=== PATIENT | female | born 1935 | race Hispanic/Latino ===

== ENCOUNTER 2018-01-10 07:08 | Observation (INO) | payer MEDICARE, OTHER ==
--- NOTE | 2018-01-10 07:33 | ED PDOC ---
HPI: Altered Mental Status Time Seen by Provider: 01/10/18 07:15 Chief Complaint (Nursing): Altered Mental Status Chief Complaint (Provider): Altered Mental Status History Per: Patient, EMS History/Exam Limitations: None Additional Complaint(s): 82 years old female with history of multiple myeloma and anemia brought to the ED by EMS after a brief period of confusion looking for her son. Patient is now awake, alert and offers no complaints. PMD: non provided Past Medical History Reviewed: Historical Data, Nursing Documentation, Vital Signs Vital Signs: Last Vital Signs Temp 98.5 F 01/10/18 07:29 Pulse 66 01/10/18 07:29 Resp 17 01/10/18 07:29 BP 122/72 01/10/18 07:29 Pulse Ox 97 01/10/18 07:29 - Medical History PMH: Anemia, Depression, Diabetes (type II), Fractures, Gall Bladder Disease, HTN, Hypothyroidism, Malignancy (multiple myeloma (chemotherapy x5 years, last treatment 2014)), Pneumonia, Chronic Kidney Disease (w/renal failure) Denies: Arthritis, CHF, COPD, HIV, Hypercholesterolemia, Rheumatoid Arthritis - Surgical History Surgical History: Cholecystectomy (October 2012), Tonsillectomy - Family History Family History: States: Unknown Family Hx - Social History Current smoker - smoking cessation education provided: No Alcohol: None Drugs: Denies - Immunization History Hx Influenza Vaccination: No Hx Pneumococcal Vaccination: No - Home Medications Home Medications: Ambulatory Orders Medication Instructions Recorded Febuxostat [Uloric] 40 mg PO HS 01/03/16 Escitalopram [Lexapro] 10 mg PO HS 03/12/16 Levothyroxine [Synthroid] 50 mcg PO DAILY 03/12/16 Ondansetron [Zofran Tab] 4 mg PO Q6 PRN #0 tab 04/16/16 Sevelamer [Renagel] 800 mg PO TID #0 tab 04/16/16 Carvedilol [Coreg] 3.125 mg PO Q12 04/18/16 Dronabinol [Marinol] 5 mg PO DAILY 07/08/17 Ergocalciferol (Vitamin D2) 50,000 units PO QWK 07/08/17 [Vitamin D2] Ferric Citrate [Auryxia] 210 mg PO BID 07/08/17 Paricalcitol [Zemplar] 1 mcg PO QOTHERDAY 07/08/17 Sodium Bicarbonate Tab 650 mg PO BID 07/08/17 Solifenacin Succinate [Vesicare] 5 mg PO DAILY 07/08/17 Solifenacin Succinate [Vesicare] 5 mg PO DAILY 07/08/17 - Allergies Allergies/Adverse Reactions: Allergies Allergy/AdvReac Type Severity Reaction Status Date / Time No Known Allergies Allergy Verified 01/10/18 07:25 Review of Systems ROS Statement: Except As Marked, All Systems Reviewed And Found Negative Neurological: Positive for: Confusion Physical Exam - Reviewed Nursing Documentation Reviewed: Yes Vital Signs Reviewed: Yes - Physical Exam Appears: Positive for: Non-toxic, No Acute Distress Neck: Positive for: Normal Cardiovascular/Chest: Positive for: Regular Rate, Rhythm. Negative for: Murmur Respiratory: Positive for: Normal Breath Sounds. Negative for: Respiratory Distress Extremity: Positive for: Normal ROM. Negative for: Tenderness, Swelling Neurologic/Psych: Positive for: Alert, Oriented (x3). Negative for: Motor/ Sensory Deficits - Laboratory Results Result Diagrams: 01/10/18 07:45 01/10/18 07:45 - ECG O2 Sat by Pulse Oximetry: 97 (RA) Pulse Ox Interpretation: Normal Medical Decision Making Medical Decision Making: Time: 725 Initial Plan: --CMP --CBC --Urinalysis Scribe Attestation: Documented by Bernie Infante, acting as a scribe for Joel Rizvi MD. Provider Scribe Attestation: All medical record entries made by the Scribe were at my direction and personally dictated by me. I have reviewed the chart and agree that the record accurately reflects my personal performance of the history, physical exam, medical decision making, and the department course for this patient. I have also personally directed, reviewed, and agree with the discharge instructions and disposition. Disposition - Clinical Impression Clinical Impression: Acute renal failure superimposed on stage 4 chronic kidney disease, Anemia, Multiple myeloma - Patient ED Disposition Is Patient to be Admitted: Yes - Disposition Disposition Time: 09:23 Condition: FAIR Forms: Citilog (Sinhala) - Pt Status Changed To: Hospital Disposition Of: Observation - POA Present On Arrival: None
[2018-01-10 07:51] LABS: BASO # 0.1 K/uL (0.0-0.2); EOS % 1.2 % (0.0-4.0); LYMPH # 1.1 K/uL (1.0-4.3); LYMPH % 30.1 % (20.0-40.0); MEAN CELL VOLUME 85.1 fl (81.0-99.0); MEAN CORPUSCULAR HGB CONC 32.9 g/dL (33.0-37.0); MEAN PLATELET VOLUME 9.8 fl (7.2-11.7); MONO # 0.2 K/uL (0.0-0.8); MONO % 4.5 % (0.0-10.0); NEUT # 2.2 K/uL (1.8-7.0); NEUT % 62.2 % (50.0-75.0); NRBC % 0.3 % (0.0-0.0); RBC 2.5 Mil/uL (3.80-5.20); RED CELL DISTRIBUTION WIDTH 17.5 % (11.5-14.5); WHITE BLOOD COUNT 3.5 K/uL (4.8-10.8)
[2018-01-10 08:04] LABS: ALBUMIN 3.8 g/dL (3.5-5.0); CALCIUM 10.1 mg/dL (8.4-10.2)
[2018-01-10 09:25] LABS: SQUAMOUS EPITHIAL 4 /hpf (0-5); URINE BACTERIA MANY (<OCC); URINE BILIRUBIN NEGATIVE (NEGATIVE); URINE BLOOD SMALL (NEGATIVE); URINE CLARITY CLOUDY (Clear); URINE COLOR YELLOW (YELLOW); URINE GLUCOSE (UA) NEG (Normal); URINE LEUKOCYTE ESTERASE LARGE Leu/uL (Negative); URINE PROTEIN 30 mg/dL (NEGATIVE); URINE UROBILINOGEN 0.2-1.0 mg/dL (0.2-1.0)
--- NOTE | 2018-01-10 10:30 | CT ---
Date of service: 01/10/2018 PROCEDURE: CT HEAD WITHOUT CONTRAST. HISTORY: COMPARISON: NoneComparison made with CT scan brain dated 06/04/2013. . Available. TECHNIQUE: Axial computed tomography images were obtained through the head/brain without intravenous contrast. Radiation dose: Total exam DLP = 754.88 mGy-cm. This CT exam was performed using one or more of the following dose reduction techniques: Automated exposure control, adjustment of the mA and/or kV according to patient size, and/or use of iterative reconstruction technique. FINDINGS: HEMORRHAGE: No. Acute parenchymal, subarachnoid nor extra-axial hemorrhage. BRAIN: Mild chronic periventricular white matter ischemic changes seen extending peripherally into the deep white matter both cerebral hemispheres No obvious parenchymal nor extra-axial mass or collection seen on this noncontrast study Moderate generalized volume loss. Mild vascular calcifications both carotid siphons. VENTRICLES: No obstructive hydrocephalus. CALVARIUM: Calvarium intact PARANASAL SINUSES: Unremarkable as visualized. No significant inflammatory changes. MASTOID AIR CELLS: Unremarkable as visualized. No inflammatory changes. OTHER FINDINGS: Changes of bilateral cataract surgery again seen. IMPRESSION: Go to the begin No acute intracranial hemorrhage. Mild chronic white matter ischemic changes. Moderate generalized volume loss.
[2018-01-10] MEDS ORDERED: Sodium Chloride 0.9% 1,000 ML IV STA (11:31)
--- NOTE | 2018-01-10 11:36 | CP.PCM.HP ---
History of Present Illness - History of Present Illness History of Present Illness: CC: Altered mental status This is an 82 year old female with pmh of multiple myeloma with secondary anemia , also with Type 2 DM, history of essential hypertension, CKD stage IV not on dialysis, hypothyroidism, pneumonia, presenting to the ED today after a brief period of confusion at home. Early this morning she was at home looking for her son. In the ED, the patient was seen to be awake and alert and is oriented x 3. She has no current complaints at this time. CT head was negative for CVA, only showed mild chronic white matter ischemic changes. Labwork shows WBC of 3.5, Hg 7.0 (down from 7.8 previously), and platelet count of 78. BUN is 62 and Creatinine is 4.6, worse than her previous (in 06/05/16 had BUN of 31 and Cr of 2.7). The patient is being admitted overnight for PRBC transfusion and for further workup and management by nephrology. Patient denies chest pain, shortness of breath, fevers, chills, nausea, vomiting, diarrhea, headache. All of the patient's and family's questions were answered at the bedside. Present on Admission - Present on Admission Any Indicators Present on Admission: No Review of Systems - Review of Systems Review of Systems: A 12 point review of systems was conducted and found to be negative other than what was mentioned in the HPI. Past Patient History - Infectious Disease Hx of Infectious Diseases: None - Tetanus Immunizations Tetanus Immunization: Unknown - Past Medical History & Family History Past Medical History?: Yes - Past Social History Alcohol: None Drugs: Denies - CARDIAC Hx Congestive Heart Failure: No Hx Hypercholesterolemia: No Hx Hypertension: Yes - PULMONARY Hx Chronic Obstructive Pulmonary Disease (COPD): No Hx Pneumonia: Yes - NEUROLOGICAL Hx Neurological Disorder: No HX Cerebrovascular Accident: No Hx Vertigo: Yes - HEENT Hx HEENT Problems: Yes Hx Cataracts: Yes (both eyes) - RENAL Hx Chronic Kidney Disease: Yes (w/renal failure) - ENDOCRINE/METABOLIC Hx Hypothyroidism: Yes - HEMATOLOGICAL/ONCOLOGICAL Hx Anemia: Yes Hx Human Immunodeficiency Virus (HIV): No - INTEGUMENTARY Hx Dermatological Problems: No - MUSCULOSKELETAL/RHEUMATOLOGICAL Hx Arthritis: No Hx Fractures: Yes Hx Rheumatoid Arthritis: No - GASTROINTESTINAL Hx Gall Bladder Disease: Yes - GENITOURINARY/GYNECOLOGICAL Hx Genitourinary Disorders: Yes Hx Urinary Tract Infection: Yes Other/Comment: Hysterectomy 39 years ago - PSYCHIATRIC Hx Depression: Yes - SURGICAL HISTORY Hx Cholecystectomy: Yes (October 2012) Hx Tonsillectomy: Yes - ANESTHESIA Hx Anesthesia: Yes Hx Anesthesia Reactions: No Hx Malignant Hyperthermia: No Meds Allergies/Adverse Reactions: Allergies Allergy/AdvReac Type Severity Reaction Status Date / Time No Known Allergies Allergy Verified 01/10/18 07:25 Physical Exam - Additional Findings Additional findings: Physical exam: Constitutional- cooperative, awake, alert Head- NCAT, PERRL Eye- PERRL, EOMI ENT- normal exam, MMM. Neck- normal inspection, supple, no JVD Respiratory- CTAB, no wheezes rales rhonchi Cardiovascular- RRR, +S1, +S2 no MRG GI/Abdominal- normal bowel sounds, soft, no mass, no hsm Skin- warm, dry Extremities Exam- normal capillary refill, normal inspection Neurological Exam- alert, awake, oriented Psych- normal mood, normal affect Results - Vital Signs Recent Vital Signs: Last Vital Signs Temp 98.5 F 01/10/18 07:29 Pulse 66 01/10/18 07:29 Resp 17 01/10/18 07:29 BP 122/72 01/10/18 07:29 Pulse Ox 97 01/10/18 09:23 - Labs Result Diagrams: 01/10/18 07:45 01/10/18 07:45 Labs: Laboratory Results - last 24 hr 01/10/18 01/10/18 01/10/18 07:45 07:45 08:40 WBC 3.5 L RBC 2.50 L Hgb 7.0 L Hct 21.2 L MCV 85.1 D MCH 28.0 MCHC 32.9 L RDW 17.5 H Plt Count 78 L MPV 9.8 Neut % (Auto) 62.2 Lymph % (Auto) 30.1 [place] % (Auto) 4.5 Eos % (Auto) 1.2 Baso % (Auto) 2.0 Neut # (Auto) 2.2 Lymph # (Auto) 1.1 [place] # (Auto) 0.2 Eos # (Auto) 0.0 Baso # (Auto) 0.1 Sodium 136 Potassium 4.9 Chloride 107 Carbon Dioxide 21 L Anion Gap 13 BUN 62 H Creatinine 4.6 H Est GFR ( Amer) 11 Est GFR (Non-Af Amer) 9 Random Glucose 93 Calcium 10.1 Total Bilirubin 0.8 AST 17 ALT 10 Alkaline Phosphatase 47 Total Protein 7.5 Albumin 3.8 Globulin 3.7 Albumin/Globulin Ratio 1.0 Urine Color Urine Clarity Urine pH Ur Specific [place] Urine Protein Urine Glucose (UA) Urine Ketones Urine Blood Urine Nitrate Urine Bilirubin Urine Urobilinogen Ur Leukocyte Esterase Urine RBC (Auto) Urine Microscopic WBC Ur Squamous Epith Cells Urine Bacteria Blood Type AB POSITIVE Crossmatch See Detail BBK History Checked Patient has bt 01/10/18 09:05 WBC RBC Hgb Hct MCV MCH MCHC RDW Plt Count MPV Neut % (Auto) Lymph % (Auto) [place] % (Auto) Eos % (Auto) Baso % (Auto) Neut # (Auto) Lymph # (Auto) [place] # (Auto) Eos # (Auto) Baso # (Auto) Sodium Potassium Chloride Carbon Dioxide Anion Gap BUN Creatinine Est GFR ( Amer) Est GFR (Non-Af Amer) Random Glucose Calcium Total Bilirubin AST ALT Alkaline Phosphatase Total Protein Albumin Globulin Albumin/Globulin Ratio Urine Color Yellow Urine Clarity Cloudy Urine pH 7.0 Ur Specific [place] 1.009 Urine Protein 30 Urine Glucose (UA) Neg Urine Ketones Negative Urine Blood Small Urine Nitrate Negative Urine Bilirubin Negative Urine Urobilinogen 0.2-1.0 Ur Leukocyte Esterase Large Urine RBC (Auto) 8 H Urine Microscopic WBC 431 H Ur Squamous Epith Cells 4 Urine Bacteria Many H Blood Type Crossmatch BBK History Checked Assessment & Plan - Assessment and Plan (Free Text) Plan: This is an 82 year old female with pmh of multiple myeloma with secondary anemia , also with Type 2 DM, history of essential hypertension, CKD stage IV not on dialysis, hypothyroidism, pneumonia, presenting to the ED today after a brief period of confusion at home. Early this morning she was at home looking for her son. In the ED, the patient was seen to be awake and alert and is oriented x 3. She has no current complaints at this time. CT head was negative for CVA, only showed mild chronic white matter ischemic changes. Labwork shows WBC of 3.5, Hg 7.0 (down from 7.8 previously), and platelet count of 78. BUN is 62 and Creatinine is 4.6, worse than her previous (in 06/05/16 had BUN of 31 and Cr of 2.7). Patient also found to have UTI on urinalysis. The patient is being admitted overnight for PRBC transfusion and for further workup and management by nephrology. Patient denies chest pain, shortness of breath, fevers, chills, nausea, vomiting, diarrhea, headache. All of the patient's and family's questions were answered at the bedside. 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 Maty March on consultation 2) Acute on chronic kidney disease stage IV, with hematuria, secondary to multiple myeloma - Dr. Younger on consult covering for Dr. Garnett - Renal and Pelvic US ordered - Check protein electrophoresis, microalbumin - U/A positive for large blood and WBC - Bicarb as per nephrology - Continue Renagel 800 mg po tID 3) UTI, likely cause of altered mental status - Many bacteria, WBC, blood in urine - f/u Blood, urine cultures - No leukocytosis or fever presently 4) Essential hypertension - Continue Coreg 5) Hypothyroidism - Continue home synthroid 6) DVT prophylaxis - Heparin 5000 sq q 12 hours
[2018-01-10] MEDS ORDERED: cefTRIAXone (Rocephin) 1 gm Inj ONE (12:06)
[2018-01-10 12:28] LABS: IRON 52 ug/dL (37-170)
[2018-01-10 12:37] LABS: % IRON SATURATION 24 % (20-55); TOTAL IRON BINDING CAPACITY 221 ug/dL (250-450)
[2018-01-10] MEDS: Levothyroxine 50 MCG TAB PO SCH (12:51)
--- NOTE | 2018-01-10 14:21 | CP.PCM.CON ---
History of Present Illness - History of Present Illness History of Present Illness: Nephrology Consultation Note: Assessment: Stable AMS, UTI Acute Kidney Injury (N17.9) likely due to pre-renal state r/o obstructive uropathy Diabetic chronic Kidney Disease (E11.22) Hypertensive Chronic Kidney Disease (I12.9) Chronic Kidney Disease (N18.4) Stage 4 with ? mg proteinuria (R80.9) Anemia (D64.9), Hyperphosphatemia (E83.39), Secondary Hyperparathyroidism (E21.1 ), HTN (I12.9) hx of multiple myeloma, memory impairment, b/l hydroureteronephrosis, metabolic acidosis, bladder stimulator Plan No acute need for renal replacement therapy at this time. . Hypertension control with meds as ordered. Maintain hemodynamics stable. Avoid hypotension. No ACEI/ARB for now due to BRODY Monitor Input/Output, daily weights and renal function with basic metabolic panel heme following, pt planned for PRBC. will defer decision for ESAs to heme/onc antibiotics for UTI as ordered started IVF as NS @ 100 ml/hr supplement with PO bicarb. pt on phos binder as aurxia, uloric for hyperuricemia. consider urology eval if imaging shows hydronephrosis. Check urine analysis, spot protein/creatinine, albumin/creatinine ratio, urine cx/sens, renal and bladder sonogram Anemia work up with TSAT/Ferritin/Vitamin B12/folate, serum protein electrophoresis with immunofixation, serum free light chain assay ([place]/Lambda) Check for 25-OH vitamin D, iPTH, phosphorus level. Dose meds/antibiotics for reduced GFR. Avoid fleets enema/magnesium based laxatives. Avoid nephrotoxins/NSAIDs/ iodinated contrast (unless needed emergently) Glycemic control Further work up/management as per primary team Thanks for allowing me to participate in care of your patient. Will follow patient with you. Please call if any Qs. d/w family and ER Dr Yaakov Younger Office: [phone] Chief Complaint; confusion Reason for consult: Acute Kidney Injury HPI: Pt is a 82 F with hx of diabetes Mellitus ( years), hypertension (years) CKD 4 with cr 3 in october 2017 (f/up with Dr Garnett), recurrent UTIs and b/l hydroureteronephrosis, anemia, multiple myeloma s/p chemo 3 years ago, memory impairment, hx of bladder stimulator presented with complaints of confusion x 1 day. also with mild burning urination. pt with decreased appetite for years better with marinol but low intake for last few days. Denies OTC/herbal meds or NSAIDs No recent iodinated contrast exposure. No obvious episodes of low BP. pt had declined dialysis as per family. ROS: Cardiovascular: No chest pain. Pulmonary: No shortness of breath Gastrointestinal: denies abdominal pain No nausea. No vomiting. Genitourinary: No pain while urinating. Denies blood in urine. has burning urination All other negative except as mentioned in HPI. family also provided ROS Physical Examination: family bedside General Appearance: Comfortable, in no acute respiratory distress, co-operative . Vitals reviewed and noted as below Head; Atraumatic, normocephalic ENT: no ulcers no thrush. Tongue is midline. Oropharynx: no rash or ulcers. EYES: Pupils are equal, round and reactive to light accommodation. Eye muscles and extraocular movement intact. Sclera is anicteric. Neck; supple no lymphadenopathy, no thyromegaly or bruit Lungs: Normal respiratory rate/effort. Breath sounds bilateral equal and clear Heart: Normal rate. s1s2 normal. No rub or gallop. Extremities: no edema. No varicose veins Neurological: Patient is alert, awake and oriented to person, place and time. No focal deficit. Strength bilateral appropriate and equal. memory impaired, mild intermittent confusion Skin: Warm and dry. Normal turgor. No rash. Palpitation: Normal elasticity for age Abdomen: Abdomen is soft. Bowel sounds +. There is no abdominal tenderness, no guarding/rigidity no organomegaly Psych: limited insight and normal affect/mood MSK: no joint tenderness or swelling. Digits and nails normal, no deformity : kidney or bladder not palpable Labs/imaging reviewed. Past medical history, past surgical history, family history, social history, allergy reviewed and noted as below Family hx: no hx of CKD. Rest non-contributory Past Patient History - Infectious Disease Hx of Infectious Diseases: None - Tetanus Immunizations Tetanus Immunization: Unknown - Past Medical History & Family History Past Medical History?: Yes - Past Social History Alcohol: None Drugs: Denies - CARDIAC Hx Congestive Heart Failure: No Hx Hypercholesterolemia: No Hx Hypertension: Yes - PULMONARY Hx Chronic Obstructive Pulmonary Disease (COPD): No Hx Pneumonia: Yes - NEUROLOGICAL Hx Neurological Disorder: No - HEENT Hx HEENT Problems: Yes - RENAL Hx Chronic Kidney Disease: Yes (w/renal failure) - ENDOCRINE/METABOLIC Hx Hypothyroidism: Yes - HEMATOLOGICAL/ONCOLOGICAL Hx Anemia: Yes Hx Human Immunodeficiency Virus (HIV): No - INTEGUMENTARY Hx Dermatological Problems: No - MUSCULOSKELETAL/RHEUMATOLOGICAL Hx Arthritis: No Hx Fractures: Yes Hx Rheumatoid Arthritis: No - GASTROINTESTINAL Hx Gall Bladder Disease: Yes - GENITOURINARY/GYNECOLOGICAL Hx Genitourinary Disorders: Yes - PSYCHIATRIC Hx Depression: Yes - SURGICAL HISTORY Hx Cholecystectomy: Yes (October 2012) Hx Tonsillectomy: Yes - ANESTHESIA Hx Anesthesia: Yes Hx Anesthesia Reactions: No Hx Malignant Hyperthermia: No Meds Allergies/Adverse Reactions: Allergies Allergy/AdvReac Type Severity Reaction Status Date / Time No Known Allergies Allergy Verified 01/10/18 07:25 - Medications Medications: Current Medications Acetaminophen (Tylenol 325mg Tab) 650 mg PO Q6 PRN PRN Reason: Pain, Mild (1-3) Carvedilol (Coreg) 3.125 mg PO Q12 [facility] Last Admin: 01/10/18 12:50 Dose: 3.125 mg Escitalopram Oxalate (Lexapro) 10 mg PO HS JIGNA Heparin Sodium (Porcine) (Heparin) 5,000 units SC Q12 JIGNA PRN Reason: Protocol Last Admin: 01/10/18 11:18 Dose: 5,000 units Home Med (Febuxostat [Uloric]) 40 mg PO HS JIGNA Ceftriaxone Sodium 1 gm/ (Sodium Chloride) 100 mls @ 100 mls/hr IVPB DAILY JIGNA PRN Reason: Protocol Last Admin: 01/10/18 12:11 Dose: 100 mls/hr Sodium Chloride (Sodium Chloride 0.9%) 1,000 mls @ 100 mls/hr IV .Q10H STA Stop: 01/10/18 21:30 Last Admin: 01/10/18 12:11 Dose: 100 mls/hr Levothyroxine Sodium (Synthroid) 50 mcg PO DAILY [facility] Last Admin: 01/10/18 12:51 Dose: 50 mcg Ondansetron HCl (Zofran Inj) 4 mg IVP Q6 PRN PRN Reason: Nausea/Vomiting Sevelamer HCl (Renagel) 800 mg PO TID [facility] Last Admin: 01/10/18 13:20 Dose: 800 mg Sodium Bicarbonate (Sodium Bicarbonate Tab) 650 mg PO BID JIGNA Last Admin: 01/10/18 12:19 Dose: 650 mg Results - Vital Signs Recent Vital Signs: Last Vital Signs Temp 97.6 F 01/10/18 14:07 Pulse 60 01/10/18 14:07 Resp 17 01/10/18 14:07 BP 156/71 H 01/10/18 14:07 Pulse Ox 100 01/10/18 14:07 - Labs Result Diagrams: 01/10/18 07:45 01/10/18 07:45 Labs: Laboratory Results - last 24 hr 01/10/18 01/10/18 01/10/18 07:45 07:45 08:40 WBC 3.5 L RBC 2.50 L Hgb 7.0 L Hct 21.2 L MCV 85.1 D MCH 28.0 MCHC 32.9 L RDW 17.5 H Plt Count 78 L MPV 9.8 Neut % (Auto) 62.2 Lymph % (Auto) 30.1 [place] % (Auto) 4.5 Eos % (Auto) 1.2 Baso % (Auto) 2.0 Neut # (Auto) 2.2 Lymph # (Auto) 1.1 [place] # (Auto) 0.2 Eos # (Auto) 0.0 Baso # (Auto) 0.1 Sodium 136 Potassium 4.9 Chloride 107 Carbon Dioxide 21 L Anion Gap 13 BUN 62 H Creatinine 4.6 H Est GFR ( Amer) 11 Est GFR (Non-Af Amer) 9 Random Glucose 93 Calcium 10.1 Iron TIBC % Saturation Total Bilirubin 0.8 AST 17 ALT 10 Alkaline Phosphatase 47 Total Protein 7.5 Albumin 3.8 Globulin 3.7 Albumin/Globulin Ratio 1.0 Vitamin B12 Urine Color Urine Clarity Urine pH Ur Specific [place] Urine Protein Urine Glucose (UA) Urine Ketones Urine Blood Urine Nitrate Urine Bilirubin Urine Urobilinogen Ur Leukocyte Esterase Urine RBC (Auto) Urine Microscopic WBC Ur Squamous Epith Cells Urine Bacteria Blood Type AB POSITIVE Antibody Screen Negative Crossmatch See Detail BBK History Checked Patient has bt 01/10/18 01/10/18 01/10/18 09:05 12:15 12:15 WBC RBC Hgb Hct MCV MCH MCHC RDW Plt Count MPV Neut % (Auto) Lymph % (Auto) [place] % (Auto) Eos % (Auto) Baso % (Auto) Neut # (Auto) Lymph # (Auto) [place] # (Auto) Eos # (Auto) Baso # (Auto) Sodium Potassium Chloride Carbon Dioxide Anion Gap BUN Creatinine Est GFR ( Amer) Est GFR (Non-Af Amer) Random Glucose Calcium Iron 52 TIBC 221 L % Saturation 24 Total Bilirubin AST ALT Alkaline Phosphatase Total Protein Albumin Globulin Albumin/Globulin Ratio Vitamin B12 498 Urine Color Yellow Urine Clarity Cloudy Urine pH 7.0 Ur Specific [place] 1.009 Urine Protein 30 Urine Glucose (UA) Neg Urine Ketones Negative Urine Blood Small Urine Nitrate Negative Urine Bilirubin Negative Urine Urobilinogen 0.2-1.0 Ur Leukocyte Esterase Large Urine RBC (Auto) 8 H Urine Microscopic WBC 431 H Ur Squamous Epith Cells 4 Urine Bacteria Many H Blood Type Antibody Screen Crossmatch BBK History Checked
--- NOTE | 2018-01-10 15:05 | RAD ---
Date of service: 01/10/2018 HISTORY: Multiple myeloma COMPARISON: Comparison chest dated 04/12/2016 TECHNIQUE: Chest PA and lateral FINDINGS: LUNGS: There appears to be some mild bibasilar atelectasis and or scarring left greater than right. In addition, there are a cluster of small rounded/elliptical shaped densities in the right mid and lower lung zone which could represent small granulomata. Followup nonemergent CT scan of the chest could be performed further evaluation. PLEURA: No significant pleural effusion identified. No pneumothorax apparent. CARDIOVASCULAR: Normal. OSSEOUS STRUCTURES: No significant abnormalities. VISUALIZED UPPER ABDOMEN: Normal. OTHER FINDINGS: None. IMPRESSION: There appears to be some mild bibasilar atelectasis and or scarring left greater than right. In addition, there are a cluster of small rounded/elliptical shaped densities in the right mid and lower lung zone which could represent small granulomata. Followup nonemergent CT scan of the chest could be performed further evaluation.
--- NOTE | 2018-01-10 15:19 | US ---
Date of service: 01/10/2018 PROCEDURE: Ultrasound of the Kidneys HISTORY: BRODY COMPARISON: None available. TECHNIQUE: Sonogram of the kidneys. FINDINGS: RIGHT KIDNEY: Measures: 10.0 times 6.9 x 4.5 cm. Normal in size, contour and echogenicity. No stone, solid mass identified. Small cyst there appear to be at least 2 small cysts upper pole left kidney 1st measuring approximately 6.8 mm and the 2nd measuring approximately 11 mm in greatest dimension. Small cyst lower pole measuring approximately 1.5 cm in greatest dimension. Mild dilatation right renal pelvis LEFT KIDNEY: Measures: 9.3 x 4.9 x 3.9 cm. Normal in size, contour and echogenicity. No stone, solid mass lesion. Mild dilatation of the renal pelvis OTHER FINDINGS: None. IMPRESSION: Mild dilatation both renal pelves. . Several small cysts right kidney
--- NOTE | 2018-01-10 16:57 | US ---
Date of service: 01/10/2018 PROCEDURE: Ultrasound of the Bladder HISTORY: BRODY. please assess for PVR as well COMPARISON: Comparison made with prior pelvic ultrasound 04/16/2016. TECHNIQUE: Sonographic evaluation of the bladder was performed. FINDINGS: Unremarkable without wall thickening or intraluminal debris. No calculus or gross mass lesion. No free fluid in pelvis. Note that patient was unable to hold urine or fill urinary bladder enough for reliable measurements. Prevoid Volume: Approximately 50 cc. Post void residual: Approximately 38 cc. Hysterectomy. IMPRESSION: Prevoid bladder volume calculated at 50 cc and postvoid at 38 cc. Note that patient was unable to hold urine or fill urinary bladder enough for reliable measurements.
--- NOTE | 2018-01-10 22:58 | CARD ---
APPROVED REPORT Date of service: 01/10/2018 EKG Measurement Heart [id number] <Conclusion> Sinus rhythm with short VA Nonspecific T wave abnormality Abnormal ECG
[2018-01-11 06:21] LABS: HEMOGLOBIN 8.6 g/dL (12.0-16.0); MEAN CELL VOLUME 84.8 fl (81.0-99.0); MEAN CORPUSCULAR HEMOGLOBIN 28.5 pg (27.0-31.0); MEAN CORPUSCULAR HGB CONC 33.6 g/dL (33.0-37.0); RBC 3.02 Mil/uL (3.80-5.20); RED CELL DISTRIBUTION WIDTH 16.7 % (11.5-14.5); WHITE BLOOD COUNT 3.8 K/uL (4.8-10.8)
[2018-01-11 06:25] LABS: CALCIUM 9.7 mg/dL (8.4-10.2)
[2018-01-11] MEDS: Levothyroxine 50 MCG TAB PO SCH (08:17)
[2018-01-11] MEDS ORDERED: DRONABINOL 5 MG PO SCH (09:00)
[2018-01-11] MEDS ORDERED: Patient's Own Med (Solifenacin Succinate [Vesicare] 5 MG) PO SCH (09:00)
--- NOTE | 2018-01-11 09:07 | CP.PCM.PN ---
Subjective - Date & Time of Evaluation Date of Evaluation: 01/11/18 Time of Evaluation: 09:06 - Subjective Subjective: patient is 82 years of phase sitting up in bed very pleasant lady not in acute distress No nausea no vomiting Objective - Vital Signs/Intake and Output Vital Signs (last 24 hours): Temp Pulse Resp BP Pulse Ox 97.9 F 58 L 16 125/72 99 01/11/18 07:34 01/11/18 07:37 01/11/18 07:34 01/11/18 05:31 01/11/18 07:34 Intake and Output: 01/11/18 01/11/18 06:59 18:59 Intake Total 1200 Output Total 300 Balance 900 - Medications Medications: Current Medications Acetaminophen (Tylenol 325mg Tab) 650 mg PO Q6 PRN PRN Reason: Pain, Mild (1-3) Escitalopram Oxalate (Lexapro) 10 mg PO [facility] Last Admin: 01/10/18 21:11 Dose: 10 mg Famotidine (Pepcid) 40 mg PO [facility] Last Admin: 01/10/18 21:14 Dose: 40 mg Ferrous Sulfate (Feosol) 325 mg PO BID [facility] Last Admin: 01/11/18 08:17 Dose: 325 mg Heparin Sodium (Porcine) (Heparin) 5,000 units SC Q12 [facility] PRN Reason: Protocol Last Admin: 01/10/18 22:07 Dose: Not Given Home Med (Dronabinol [Marinol]) 5 mg PO DAILY [facility] Home Med (Solifenacin Succinate [Vesicare]) 5 mg PO DAILY [facility] Home Med (Febuxostat [Uloric]) 80 mg PO [facility] Last Admin: 01/10/18 21:11 Dose: 80 mg Ceftriaxone Sodium 1 gm/ (Sodium Chloride) 100 mls @ 100 mls/hr IVPB DAILY [facility] PRN Reason: Protocol Last Admin: 01/11/18 08:18 Dose: 100 mls/hr Levothyroxine Sodium (Synthroid) 50 mcg PO DAILY [facility] Last Admin: 01/11/18 08:17 Dose: 50 mcg Ondansetron HCl (Zofran Inj) 4 mg IVP Q6 PRN PRN Reason: Nausea/Vomiting Sevelamer HCl (Renagel) 800 mg PO TID [facility] Last Admin: 01/11/18 08:17 Dose: 800 mg Sodium Bicarbonate (Sodium Bicarbonate Tab) 650 mg PO BID [facility] Last Admin: 01/11/18 08:17 Dose: 650 mg - Labs Labs: 01/11/18 04:20 01/11/18 04:20 - Constitutional Appears: No Acute Distress - ENT Exam ENT Exam: Mucous Membranes Moist - Respiratory Exam Respiratory Exam: absent: Chest Wall Tenderness - Cardiovascular Exam Cardiovascular Exam: absent: Gallop, JVD, Rubs - GI/Abdominal Exam GI & Abdominal Exam: Soft, Normal Bowel Sounds - Extremities Exam Extremities Exam: absent: Calf Tenderness - Back Exam Back Exam: absent: CVA tenderness (L), CVA tenderness (R) - Neurological Exam Neurological Exam: Alert - Psychiatric Exam Psychiatric exam: Normal Affect - Skin Skin Exam: absent: Cyanosis Assessment and Plan (1) Acute renal failure superimposed on stage 4 chronic kidney disease Assessment & Plan: AMS, UTI Acute Kidney Injury (N17.9) likely due to pre-renal state r/o obstructive uropathy Diabetic chronic Kidney Disease (E11.22) Hypertensive Chronic Kidney Disease (I12.9) Chronic Kidney Disease (N18.4) Stage 4 with ? mg proteinuria (R80.9) Anemia (D64.9), Hyperphosphatemia (E83.39), Secondary Hyperparathyroidism (E21.1 ), HTN (I12.9) hx of multiple myeloma, memory impairment, b/l hydroureteronephrosis, metabolic acidosis, bladder stimulator Plan No acute need for renal replacement therapy at this time. . Hypertension control with meds as ordered. Maintain hemodynamics stable. Avoid hypotension. No ACEI/ARB for now due to BRODY Monitor Input/Output, daily weights and renal function with basic metabolic panel heme following, pt planned for PRBC. will defer decision for ESAs to heme/onc antibiotics for UTI as ordered started IVF as NS @ 100 ml/hr supplement with PO bicarb. pt on phos binder as aurxia, uloric for hyperuricemia. consider urology eval if imaging shows hydronephrosis. Check urine analysis, spot protein/creatinine, albumin/creatinine ratio, urine cx/sens, renal and bladder sonogram Anemia work up with TSAT/Ferritin/Vitamin B12/folate, serum protein electrophoresis with immunofixation, serum free light chain assay ([place]/Lambda) Check for 25-OH vitamin D, iPTH, phosphorus level. Dose meds/antibiotics for reduced GFR. Avoid fleets enema/magnesium based laxatives. Avoid nephrotoxins/NSAIDs/ iodinated contrast (unless needed emergently) Glycemic control Further work up/management as per primary team follow-up BMP and CBC Status: Acute (2) Anemia Status: Acute (3) Multiple myeloma Status: Chronic
--- NOTE | 2018-01-11 09:14 | CP.PCM.PN ---
Subjective - Date & Time of Evaluation Date of Evaluation: 01/11/18 Time of Evaluation: 09:08 - Subjective Subjective: This is a 82 yrs ld female wh was diagnosed to have a multiple myeloma about 7 yrs ago. She was treated with chemotherapy until she went into remission. She was on revlimid for a while but had some side effects ,so the medicine was discontinued and pt has been stable . Over the last 1.5 yrs her BUN and creatinine started going up and was being followed up with Dr Bustillos. The blood work was monitored but no dialysis was needed. Now she came in with a momentary chamge of mental status when she was looking for a baby. She was brought to the ER where her hgb was 7.0gms, and was trens fused 1 unit of blood.She had completely recovered from the mental problems since she came to the hospial. Objective - Vital Signs/Intake and Output Vital Signs (last 24 hours): Temp Pulse Resp BP Pulse Ox 97.9 F 58 L 16 125/72 99 01/11/18 07:34 01/11/18 07:37 01/11/18 07:34 01/11/18 05:31 01/11/18 07:34 Intake and Output: 01/11/18 01/11/18 06:59 18:59 Intake Total 1200 Output Total 300 Balance 900 - Medications Medications: Current Medications Acetaminophen (Tylenol 325mg Tab) 650 mg PO Q6 PRN PRN Reason: Pain, Mild (1-3) Escitalopram Oxalate (Lexapro) 10 mg PO [facility] Last Admin: 01/10/18 21:11 Dose: 10 mg Famotidine (Pepcid) 40 mg PO [facility] Last Admin: 01/10/18 21:14 Dose: 40 mg Ferrous Sulfate (Feosol) 325 mg PO BID [facility] Last Admin: 01/11/18 08:17 Dose: 325 mg Heparin Sodium (Porcine) (Heparin) 5,000 units SC Q12 [facility] PRN Reason: Protocol Last Admin: 01/10/18 22:07 Dose: Not Given Home Med (Dronabinol [Marinol]) 5 mg PO DAILY [facility] Home Med (Solifenacin Succinate [Vesicare]) 5 mg PO DAILY [facility] Home Med (Febuxostat [Uloric]) 80 mg PO [facility] Last Admin: 01/10/18 21:11 Dose: 80 mg Ceftriaxone Sodium 1 gm/ (Sodium Chloride) 100 mls @ 100 mls/hr IVPB DAILY [facility] PRN Reason: Protocol Last Admin: 01/11/18 08:18 Dose: 100 mls/hr Levothyroxine Sodium (Synthroid) 50 mcg PO DAILY [facility] Last Admin: 01/11/18 08:17 Dose: 50 mcg Ondansetron HCl (Zofran Inj) 4 mg IVP Q6 PRN PRN Reason: Nausea/Vomiting Sevelamer HCl (Renagel) 800 mg PO TID [facility] Last Admin: 01/11/18 08:17 Dose: 800 mg Sodium Bicarbonate (Sodium Bicarbonate Tab) 650 mg PO BID [facility] Last Admin: 01/11/18 08:17 Dose: 650 mg - Labs Labs: 01/11/18 04:20 01/11/18 04:20 - Additional Findings Additional findings: Physical exam; Alert,well oriented in no acute distress, very well oriented and embarassed about her mental lapse. neck; supple, no adenopathy Chest; Clear,no rales or rhonchi heart; RSR, no murmur Abd; Soft, no mass, no h/s megal Assessment and Plan - Assessment and Plan (Free Text) Assessment: Impression :Astablr disease. nemia ,chronic renal failure h/o multiple myeloma stable disease.. Plan: Plan; Pt was transfused 1 unit of blood, yesterday , hgb is 8.5 gms today. She may go home pending dance coach orders, she will see me in 1 month I did order tests to r/o recurrence of myeloma, which was sent from the ER.
--- NOTE | 2018-01-11 09:15 | CP.PCM.DIS ---
Provider - Provider Date of Admission: 01/10/18 08:57 Attending physician: Aldo Etienne DO Primary care physician: Chidi March MD Consults: Dr. Aren March Time Spent in preparation of Discharge (in minutes): 15 Hospital Course - Lab Results Lab Results: Micro Results 01/10/18 09:11 Blood Blood Culture - Preliminary NO GROWTH AFTER 24 HOURS Most Recent Lab Values WBC 3.8 K/uL (4.8-10.8) L 01/11/18 04:20 RBC 3.02 Mil/uL (3.80-5.20) L 01/11/18 04:20 Hgb 8.6 g/dL (12.0-16.0) L 01/11/18 04:20 Hct 25.6 % (34.0-47.0) L 01/11/18 04:20 MCV 84.8 fl (81.0-99.0) 01/11/18 04:20 MCH 28.5 pg (27.0-31.0) 01/11/18 04:20 MCHC 33.6 g/dL (33.0-37.0) 01/11/18 04:20 RDW 16.7 % (11.5-14.5) H 01/11/18 04:20 Plt Count 55 K/uL (130-400) L D 01/11/18 04:20 MPV 9.8 fl (7.2-11.7) 01/10/18 07:45 Neut % (Auto) 62.2 % (50.0-75.0) 01/10/18 07:45 Lymph % (Auto) 30.1 % (20.0-40.0) 01/10/18 07:45 [place] % (Auto) 4.5 % (0.0-10.0) 01/10/18 07:45 Eos % (Auto) 1.2 % (0.0-4.0) 01/10/18 07:45 Baso % (Auto) 2.0 % (0.0-2.0) 01/10/18 07:45 Neut # (Auto) 2.2 K/uL (1.8-7.0) 01/10/18 07:45 Lymph # (Auto) 1.1 K/uL (1.0-4.3) 01/10/18 07:45 [place] # (Auto) 0.2 K/uL (0.0-0.8) 01/10/18 07:45 Eos # (Auto) 0.0 K/uL (0.0-0.7) 01/10/18 07:45 Baso # (Auto) 0.1 K/uL (0.0-0.2) 01/10/18 07:45 Sodium 139 mmol/l (132-148) 01/11/18 04:20 Potassium 4.6 MMOL/L (3.6-5.0) 01/11/18 04:20 Chloride 109 mmol/L (98-107) H 01/11/18 04:20 Carbon Dioxide 25 mmol/L (22-30) 01/11/18 04:20 Anion Gap 10 (10-20) 01/11/18 04:20 BUN 53 mg/dl (7-17) H 01/11/18 04:20 Creatinine 4.1 mg/dl (0.7-1.2) H 01/11/18 04:20 Est GFR ( Amer) 13 01/11/18 04:20 Est GFR (Non-Af Amer) 10 01/11/18 04:20 POC Glucose (mg/dL) 84 mg/dL (65-110) 01/11/18 05:36 Random Glucose 92 mg/dL (65-105) 01/11/18 04:20 Calcium 9.7 mg/dL (8.4-10.2) 01/11/18 04:20 Phosphorus 3.4 mg/dl (2.5-4.5) 01/11/18 04:20 Magnesium 1.9 MG/DL (1.6-2.3) 01/11/18 04:20 Iron 52 ug/dL (37-170) 01/10/18 12:15 TIBC 221 ug/dL (250-450) L 01/10/18 12:15 % Saturation 24 % (20-55) 01/10/18 12:15 Ferritin 1410.0 ng/Ml (11.1-264.0) H 01/10/18 12:15 Total Bilirubin 0.8 mg/dl (0.2-1.3) 01/10/18 07:45 AST 17 U/L (14-36) 01/10/18 07:45 ALT 10 U/L (9-52) 01/10/18 07:45 Alkaline Phosphatase 47 U/L (38-126) 01/10/18 07:45 Total Protein 7.5 G/DL (6.3-8.2) 01/10/18 07:45 Albumin 3.8 g/dL (3.5-5.0) 01/10/18 07:45 Globulin 3.7 gm/dL (2.2-3.9) 01/10/18 07:45 Albumin/Globulin Ratio 1.0 (1.0-2.1) 01/10/18 07:45 Vitamin B12 498 pg/mL (239-931) 01/10/18 12:15 Urine Color Yellow (YELLOW) 01/10/18 09:05 Urine Clarity Cloudy (Clear) 01/10/18 09:05 Urine pH 7.0 (5.0-8.0) 01/10/18 09:05 Ur Specific [place] 1.009 (1.003-1.030) 01/10/18 09:05 Urine Protein 30 mg/dL (NEGATIVE) 01/10/18 09:05 Urine Glucose (UA) Neg mg/dL (Normal) 01/10/18 09:05 Urine Ketones Negative mg/dL (NEGATIVE) 01/10/18 09:05 Urine Blood Small (NEGATIVE) 01/10/18 09:05 Urine Nitrate Negative (NEGATIVE) 01/10/18 09:05 Urine Bilirubin Negative (NEGATIVE) 01/10/18 09:05 Urine Urobilinogen 0.2-1.0 mg/dL (0.2-1.0) 01/10/18 09:05 Ur Leukocyte Esterase Large [place]/uL (Negative) 01/10/18 09:05 Urine RBC (Auto) 8 /hpf (0-3) H 01/10/18 09:05 Urine Microscopic WBC 431 /hpf (0-5) H 01/10/18 09:05 Ur Squamous Epith Cells 4 /hpf (0-5) 01/10/18 09:05 Urine Bacteria Many (<OCC) H 01/10/18 09:05 Blood Type AB POSITIVE 01/10/18 08:40 Antibody Screen Negative 01/10/18 08:40 Crossmatch See Detail 01/10/18 08:40 BBK History Checked Patient has bt 01/10/18 08:40 - Hospital Course Hospital Course: Pt is an 82 yo female with a PMH of multiple myeloma with secondary anemia, HTN , CKD stage IV, hypothyroidism, came to the ED on 01/10 due to a period of confusion at home she states she was looking for her son and called the police to report him missing. In the ED patient was alert awake and oriented x3 , CT of head showed was negative for acute intracranial bleeding. UTI was positive for bacteria, WBC and blood in urine. Patients hg was 7.0 and platelet count was 78 she was transfused 1 unit of PRBC and nephrology Dr. Younger and Dr. Maty March were consulted. Today patient is doing well she is awake, alert and oriented x3. States she has mild dysuria, denies any chest pain, SOB, fevers, chills, nausea, vomiting, diarrhea, and constipation. Patient is hemodynamically stable, has elevated BP and sinus bradycardia Dr. Sabina March was consulted discontinued Coreg, started Norvasc. PT eval for discharge today on PO Cipro antibiotics. 1) Pancytopenia secondary to multiple myeloma - 1 unit of PRBCs transfused - pt hemodynamically stable - Patient can follow up with Dr. Maty March as outpt 2) Acute on chronic kidney disease stage IV, with hematuria, secondary to multiple myeloma - Renal U/S mild dilatation of both renal pelves, several small cysts on R kidney - U/A positive for large blood and WBC- Continue Cipro for 7 days as out pt - Renal replacement therapy was started, Bicarb as per nephrology - Continue Renagel 800 mg po TID 3) Transient confusion AMS Secondary to UTI - Many bacteria, WBC, blood in urine - Continue Cipro abx for 7 days as outpt - No leukocytosis or fever 4) Essential hypertension - Started Norvasc 5) Hypothyroidism - Continue Synthroid Discharge Exam - Head Exam Head Exam: ATRAUMATIC, NORMAL INSPECTION, NORMOCEPHALIC - Eye Exam Eye Exam: EOMI, Normal appearance, PERRL - ENT Exam ENT Exam: Mucous Membranes Moist - Respiratory Exam Respiratory Exam: Clear to PA & Lateral, NORMAL BREATHING PATTERN - Cardiovascular Exam Cardiovascular Exam: RRR, +S1, +S2 - GI/Abdominal Exam GI & Abdominal Exam: Normal Bowel Sounds - Extremities Exam Extremities exam: normal inspection - Neurological Exam Neurological exam: Alert, Oriented x3 - Psychiatric Exam Psychiatric exam: Normal Mood - Skin Skin Exam: Normal Color Discharge Plan - Discharge Medications Prescriptions: amLODIPine [Norvasc] 5 mg PO DAILY #30 tab Ciprofloxacin HCl [Cipro] 500 mg PO BID #14 tablet - Follow Up Plan Condition: STABLE Disposition: HOME/ ROUTINE Patient education suggested?: Yes Instructions: Anemia of Chronic Disease (DC), Urinary Tract Infection in Women (DC) Additional Instructions: follow up with in 1 week Referrals: Chidi March MD [Primary Care Provider] - Debbie March MD [Staff Provider] -
--- NOTE | 2018-01-11 09:22 | CP.PCM.CON ---
History of Present Illness - History of Present Illness History of Present Illness: This 82-year-old female is well-known to me. 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 She is a long-standing hypertensive was on beta-blockade. There is no history of smoking or diabetes and that has never been a myocardial infarction or congestive cardiac failure. The patient used to have frequent urinary tract infections and repeated hospitalizations approximately 2 years back which has resolved following a urological procedure which has relieved her of urinary stagnation. The patient also has hypothyroidism for which she takes thyroid replacement. The patient was brought to the emergency room when she woke up quite confused and this confusion lasted briefly. The patient was quite lucid by the time she was brought to the emergency room. She clearly remembers her ambulance ride to the emergency room. There was no lateralizing motor deficit or speech or visual disturbance. There were no chills or fever. Physical examination shows an elderly thin built female who is quite alert awake and coherent. She has sinus rhythm at 58 bpm regular and a blood pressure of 134/70 mmHg. Her jugular venous pressure was not elevated and there was no edema over lower extremities. The pedal pulses were well felt. There were no carotid bruits. The apex was in the face pain is the first and second heart sounds were normal. There was no murmur or gallop. There were no rales. Her abdomen was soft and liver and spleen are not palpable. Her electrocardiogram showed sinus rhythm but otherwise a normal pattern. Her lab data shows a normocytic normochromic anemia with mild degree of thrombocytopenia. She is significantly azotemic with a GFR in the range of 9-10 mL per minute. Her liver profile was normal. Impression: Transient confusion with no overt neurological deficit. Chronic renal failure secondary to multiple myeloma history of hypertension. I have discussed her case with the hospitalist and she may be allowed to return home to be worked up as an outpatient. Past Patient History - Infectious Disease Hx of Infectious Diseases: None - Tetanus Immunizations Tetanus Immunization: Unknown - Past Medical History & Family History Past Medical History?: Yes - Past Social History Smoking Status: Never Smoked - CARDIAC Hx Angina: No Hx Atrial Fibrillation: No Hx Cardia Arrhythmia: No Hx Circulatory Problems: No Hx Congestive Heart Failure: No Hx Heart Attack: No Hx Heart Murmur: No Hx Heart Transplant: No Hx Hypercholesterolemia: No Hx Hypertension: Yes Hx Hypotension: No Hx Internal Defibrillator: No Hx Mitral Valve Prolapse: No Hx Pacemaker: No Hx Peripheral Edema: No Hx Peripheral Vascular Disease: No - PULMONARY Hx Asthma: No Hx Bronchitis: No Hx Chronic Obstructive Pulmonary Disease (COPD): No Hx Emphysema: No Hx Lung Cancer: No Hx Pneumonia: Yes Hx Pulmonary Edema: No Hx Pulmonary Embolism: No Hx Respiratory Aspiration: No Hx Respiratory Tract Infection: No Hx Sleep Apnea: No Hx Tuberculosis: No - NEUROLOGICAL Hx Neurological Disorder: No Hx Alzheimer's Disease: No HX Cerebrovascular Accident: No Hx Dementia: No Hx Dizziness: Yes (on and off) Hx Meningitis: No Hx Migraine: No Hx Multiple Sclerosis: No Hx Paralysis: No Hx Parkinson's Disease: No Hx Seizures: No Hx Syncope: No Hx Transient Ischemic Attacks (TIA): No Hx Vertigo: Yes - HEENT Hx HEENT Problems: Yes Hx Blind: No Hx Cataracts: Yes (b/l cataract surgery 2009?) Hx Deafness: No Hx Difficulty Chewing: No Hx Epistaxis: No Hx Glaucoma: No Hx Macular Degeneration: No Hx Sinusitis: No - RENAL Hx Chronic Kidney Disease: Yes (w/renal failure) Hx Dialysis: No Hx Kidney Stones: Yes Hx Neurogenic Bladder: No Hx Pyelonephritis: No Hx Renal (Kidney) Cancer: No Hx Renal Failure: Yes - ENDOCRINE/METABOLIC Hx Adrenal Cancer: No Hx Diabetes Insipidus: No Hx Diabetes Mellitus Type 1: No Hx Diabetes Mellitus Type 2: Yes (had past history of DM) Hx Hyperthyroidism: No Hx Hypothyroidism: Yes Hx Systemic Lupus Erythematosus: No - HEMATOLOGICAL/ONCOLOGICAL Hx AIDS: No Hx Anemia: Yes Hx Blood Transfusions: Yes Hx Blood Transfusion Reaction: No Hx Bruising: Yes Hx Cancer: Yes (multiple myeloma 2009) Hx Chemotherapy: Yes Hx Cirrhosis: No Hx Gum Bleeding: No Hx Hemophilia: No Hx Hepatitis A: No Hx Hepatitis B: No Hx Hepatitis C: No Hx Human Immunodeficiency Virus (HIV): No Hx Leukemia: No Hx Metastesis: No Hx Shingles: Yes Hx Sickle Cell Disease: No Hx Unexplained Bleeding: No Hx von Willebrand's Disease: No - INTEGUMENTARY Hx Dermatological Problems: No Hx Basil Cell: No Hx Apodaca: No Hx Cellulitis: No Hx Eczema: No Hx Melanoma: No Hx Psoriasis: No Hx Squamous Cell: No - MUSCULOSKELETAL/RHEUMATOLOGICAL Hx Arthritis: Yes Hx Back Pain: Yes Hx Degenerative Joint Disease: Yes Hx Falls: Yes Hx Fractures: Yes Hx Gout: No Hx Herniated Disk: Yes Hx Myasthenia Gravis: No Hx Osteoarthritis: Yes Hx Osteomyelitis: No Hx Osteoporosis: Yes Hx Rhabdomyolysis: No Hx Rheumatoid Arthritis: No Hx Spinal Stenosis: Yes Hx Unsteady Gait: No (uses walker) - GASTROINTESTINAL Hx Bowel Surgery: No Hx Clostridium Difficile: No Hx Colitis: No Hx Colostomy: No Hx Constipation: Yes (occassional) Hx Crohn's Disease: No Hx Diarrhea: Yes (occassional) Hx Diverticulitis: No Hx Esophageal Varices: No Hx Fatty Liver Disease: No Hx Gall Bladder Disease: Yes (gallbladder removed) Hx Gastritis: No Hx Gastroesophageal Reflux: No Hx Hemorrhoids: Yes Hx Ileostomy: No Hx Irritable Bowel: No Hx Liver Failure: No Hx Nausea: No Hx Pancreatitis: No HX Swallowing Problems: No Hx Ulcer: No - GENITOURINARY/GYNECOLOGICAL Hx Genitourinary Disorders: Yes Hx Bladder Cancer: No Hx Bladder Stone: No Hx Cervical Cancer: No Hx Hematuria: No Hx Incontinence: Yes Hx Ovarian Cancer: No Hx Postmenopausal Bleeding: No Hx Reproductive Disorders: No Hx Sexually Transmitted Disorders: No Hx Uterine Cancer: No Hx Urinary Tract Infection: Yes - PSYCHIATRIC Hx Anxiety: No Hx Bipolar Disorder: No Hx Depression: Yes Hx Emotional Abuse: No Hx Hallucinations: No Hx Panic Symptoms: No Hx Paranoia: No Hx Post Traumatic Stress Disorder: No Hx Psychosis: No Hx Physical Abuse: No Hx Schizophrenia: No Hx Sexual Abuse: No Hx Substance Use: No - SURGICAL HISTORY Hx Abdominal Aortic Aneurysm Repair: No Hx Amputation: No Hx Angiogram: No Hx Angioplasty: No Hx Appendectomy: No Hx Arteriovenous Shunt: No Hx Arthroscopy: No Hx Bile Duct Stent: No Hx Breast Biopsy: No Hx Cataract Extraction: No Hx Cardiac Catheterization: No Hx Carotid Endarterectomy: No Hx Section: No Hx Cholecystectomy: Yes (October 2012) Hx Coronary Artery Bypass Graft: No Hx Coronary Stent: No Hx Dilation and Curettage: No Hx Eye Surgery: No Hx Femoral-Popliteal Bypass Graft: No Hx Gastric Bypass Surgery: No Hx Herniorrhaphy: No Hx Hysterectomy: Yes Hx Joint Replacement: No Hx Kidney Transplant: No Hx Liver Transplant: No Hx Mastectomy: No Hx Musculoskeletal Surgery: No Hx Open Heart Surgery: No Hx Open Reduction Internal Fixation: Yes (right hip 2009) Hx Orthopedic Surgery: Yes Hx Parathyroidectomy: No Hx Penile Implant: No Hx Pulmonary Surgery: No Hx Splenectomy: No Hx Thyroidectomy: No Hx Tonsillectomy: Yes Hx Tubal Ligation: No Hx Valve Replacement: No Hx Vascular Surgery: No Hx Vascular Access Device: No Other/Comment: IM roding right femur 2014. bladder stimulator - ANESTHESIA Hx Anesthesia: Yes Hx Anesthesia Reactions: Yes (nausea) Hx Malignant Hyperthermia: No Has any member of the family had a problem w/ anesthesia?: Yes (daughter/ nuasea episodes) Meds Allergies/Adverse Reactions: Allergies Allergy/AdvReac Type Severity Reaction Status Date / Time No Known Allergies Allergy Verified 01/10/18 07:25 - Medications Medications: Current Medications Acetaminophen (Tylenol 325mg Tab) 650 mg PO Q6 PRN PRN Reason: Pain, Mild (1-3) Escitalopram Oxalate (Lexapro) 10 mg PO HS [facility] Last Admin: 01/10/18 21:11 Dose: 10 mg Famotidine (Pepcid) 40 mg PO [facility] Last Admin: 01/10/18 21:14 Dose: 40 mg Ferrous Sulfate (Feosol) 325 mg PO BID [facility] Last Admin: 01/11/18 08:17 Dose: 325 mg Heparin Sodium (Porcine) (Heparin) 5,000 units SC Q12 [facility] PRN Reason: Protocol Last Admin: 01/10/18 22:07 Dose: Not Given Home Med (Dronabinol [Marinol]) 5 mg PO DAILY [facility] Home Med (Solifenacin Succinate [Vesicare]) 5 mg PO DAILY [facility] Home Med (Febuxostat [Uloric]) 80 mg PO [facility] Last Admin: 01/10/18 21:11 Dose: 80 mg Ceftriaxone Sodium 1 gm/ (Sodium Chloride) 100 mls @ 100 mls/hr IVPB DAILY [facility] PRN Reason: Protocol Last Admin: 01/11/18 08:18 Dose: 100 mls/hr Levothyroxine Sodium (Synthroid) 50 mcg PO DAILY [facility] Last Admin: 01/11/18 08:17 Dose: 50 mcg Ondansetron HCl (Zofran Inj) 4 mg IVP Q6 PRN PRN Reason: Nausea/Vomiting Sevelamer HCl (Renagel) 800 mg PO TID [facility] Last Admin: 01/11/18 08:17 Dose: 800 mg Sodium Bicarbonate (Sodium Bicarbonate Tab) 650 mg PO BID [facility] Last Admin: 01/11/18 08:17 Dose: 650 mg Results - Vital Signs Recent Vital Signs: Last Vital Signs Temp 97.9 F 01/11/18 07:34 Pulse 58 L 01/11/18 07:37 Resp 16 01/11/18 07:34 BP 125/72 01/11/18 05:31 Pulse Ox 99 01/11/18 07:34 - Labs Result Diagrams: 01/11/18 04:20 01/11/18 04:20 Labs: Laboratory Results - last 24 hr 01/10/18 01/10/18 01/10/18 07:45 08:40 09:05 WBC RBC Hgb Hct MCV MCH MCHC RDW Plt Count 78 L Sodium Potassium Chloride Carbon Dioxide Anion Gap BUN Creatinine Est GFR ( Amer) Est GFR (Non-Af Amer) POC Glucose (mg/dL) Random Glucose Calcium Phosphorus Magnesium Iron TIBC % Saturation Ferritin Vitamin B12 Urine Color Yellow Urine Clarity Cloudy Urine pH 7.0 Ur Specific [place] 1.009 Urine Protein 30 Urine Glucose (UA) Neg Urine Ketones Negative Urine Blood Small Urine Nitrate Negative Urine Bilirubin Negative Urine Urobilinogen 0.2-1.0 Ur Leukocyte Esterase Large Urine RBC (Auto) 8 H Urine Microscopic WBC 431 H Ur Squamous Epith Cells 4 Urine Bacteria Many H Blood Type AB POSITIVE Antibody Screen Negative Crossmatch See Detail BBK History Checked Patient has bt 01/10/18 01/10/18 01/10/18 12:15 12:15 17:37 WBC RBC Hgb Hct MCV MCH MCHC RDW Plt Count Sodium Potassium Chloride Carbon Dioxide Anion Gap BUN Creatinine Est GFR ( Amer) Est GFR (Non-Af Amer) POC Glucose (mg/dL) 90 Random Glucose Calcium Phosphorus Magnesium Iron 52 TIBC 221 L % Saturation 24 Ferritin 1410.0 H Vitamin B12 498 Urine Color Urine Clarity Urine pH Ur Specific [place] Urine Protein Urine Glucose (UA) Urine Ketones Urine Blood Urine Nitrate Urine Bilirubin Urine Urobilinogen Ur Leukocyte Esterase Urine RBC (Auto) Urine Microscopic WBC Ur Squamous Epith Cells Urine Bacteria Blood Type Antibody Screen Crossmatch BBK History Checked 01/10/18 01/11/18 01/11/18 21:24 04:20 04:20 WBC RBC Hgb Hct MCV MCH MCHC RDW Plt Count Sodium 139 Potassium 4.6 Chloride 109 H Carbon Dioxide 25 Anion Gap 10 BUN 53 H Creatinine 4.1 H Est GFR ( Amer) 13 Est GFR (Non-Af Amer) 10 POC Glucose (mg/dL) 119 H Random Glucose 92 Calcium 9.7 Phosphorus 3.4 Magnesium 1.9 Iron TIBC % Saturation Ferritin Vitamin B12 Urine Color Urine Clarity Urine pH Ur Specific [place] Urine Protein Urine Glucose (UA) Urine Ketones Urine Blood Urine Nitrate Urine Bilirubin Urine Urobilinogen Ur Leukocyte Esterase Urine RBC (Auto) Urine Microscopic WBC Ur Squamous Epith Cells Urine Bacteria Blood Type Antibody Screen Crossmatch BBK History Checked 01/11/18 01/11/18 04:20 05:36 WBC 3.8 L RBC 3.02 L Hgb 8.6 L Hct 25.6 L MCV 84.8 MCH 28.5 MCHC 33.6 RDW 16.7 H Plt Count 55 L D Sodium Potassium Chloride Carbon Dioxide Anion Gap BUN Creatinine Est GFR ( Amer) Est GFR (Non-Af Amer) POC Glucose (mg/dL) 84 Random Glucose Calcium Phosphorus Magnesium Iron TIBC % Saturation Ferritin Vitamin B12 Urine Color Urine Clarity Urine pH Ur Specific [place] Urine Protein Urine Glucose (UA) Urine Ketones Urine Blood Urine Nitrate Urine Bilirubin Urine Urobilinogen Ur Leukocyte Esterase Urine RBC (Auto) Urine Microscopic WBC Ur Squamous Epith Cells Urine Bacteria Blood Type Antibody Screen Crossmatch BBK History Checked
[2018-01-11 16:35] LABS: FOLATE 5.4 ng/mL
[2018-01-11 16:49] VITALS: BP 129/64; PULSE 58; RESP 20; TEMP 97.6; O2SAT 92
[2018-01-12 12:23] LABS: ALBUMIN (PEP) 3.6 g/dL (3.8-4.8); ALPHA-1-GLOBULIN (PEP) 0.4 g/dL (0.2-0.3)
== END 2018-01-11 17:22 | disposition home or self-care (01) ==
LOC: H.ER 07:08 → H.ERHOLD 08:57 → H.ICU/CCU 14:57
PROVIDERS: ADMIT Internal Medicine; ATTEND Internal Medicine
DX: D61.818 Other pancytopenia (principal); C90.00 Multiple myeloma not having achieved remission; N39.0 Urinary tract infection, site not specified; E03.9 Hypothyroidism, unspecified; E11.22 Type 2 diabetes mellitus with diabetic chronic kidney disease; E83.39 Other disorders of phosphorus metabolism; I12.9 Hypertensive chronic kidney disease with stage 1 through stage 4 chronic kidney disease, or unspecified chronic kidney disease; M81.0 Age-related osteoporosis without current pathological fracture; N17.9 Acute kidney failure, unspecified; N18.4 Chronic kidney disease, stage 4 (severe); N25.81 Secondary hyperparathyroidism of renal origin; Z87.01 Personal history of pneumonia (recurrent); Z87.440 Personal history of urinary (tract) infections; Z87.442 Personal history of urinary calculi; Z90.49 Acquired absence of other specified parts of digestive tract; Z90.710 Acquired absence of both cervix and uterus; Z92.21 Personal history of antineoplastic chemotherapy; Z98.42 Cataract extraction status, left eye; Z98.41 Cataract extraction status, right eye; E87.2 Acidosis; F32.9 Major depressive disorder, single episode, unspecified; K59.00 Constipation, unspecified; K64.9 Unspecified hemorrhoids; K82.9 Disease of gallbladder, unspecified; M19.90 Unspecified osteoarthritis, unspecified site; M48.00 Spinal stenosis, site unspecified; N13.30 Unspecified hydronephrosis; R00.1 Bradycardia, unspecified; R31.9 Hematuria, unspecified
CPT/HCPCS: 36430; 70450; 71046; 76770; 76856; 80048; 80053; 81003; 82043; 82306; 82570; 82607; 82728; 82746; 82948; 83540; 83550; 83735; 83883; 83970; 84100; 84155; 84156; 84165; 85025; 85027; 86334; 86850; 86900; 86920; 87040; 87081; 87086; 93005; 96365; 96372; 97161; 99285; G0378; G8978; G8979; J0696; J1644; J7030; P9051

== ENCOUNTER 2018-10-05 11:50 | Observation (INO) | payer MEDICARE, OTHER ==
[2018-10-05 11:53] VITALS: BMI 22.1
--- NOTE | 2018-10-05 12:47 | ED PDOC ---
HPI: Back Time Seen by Provider: 10/05/18 12:35 Chief Complaint (Nursing): Back Pain History Per: Patient Onset/Duration Of Symptoms: Intermittent Episodes Current Symptoms Are (Timing): Intermittent Episodes Quality Of Discomfort: Unable To Describe Severity: Mild Previous Symptoms: Back Pain Associated Symptoms: None Exacerbating Factor(s): Nothing Additional Complaint(s): Low back pain intermittent worse over past few days. Denies fall or injury. Denies dysuria or frequency. Denies fever or chills. Family concerned about UTI or kidney dysfunction. Denies abdominal pain. Also c/o swelling left knee. No injury Past Medical History Vital Signs: Last Vital Signs Temp 98.7 F 10/05/18 11:54 Pulse 89 10/05/18 11:54 Resp 16 10/05/18 11:54 BP 118/57 L 10/05/18 11:54 Pulse Ox 98 10/05/18 11:54 Primary Care Provider: Chidi March V - Medical History PMH: Anemia, Arthritis, Depression, Diabetes (type II), Fractures, Gall Bladder Disease (gallbladder removed), HTN, Hypothyroidism, Kidney Stones, Malignancy (multiple myeloma (chemotherapy x5 years, last treatment 2014)), Osteoporosis, Pneumonia, Chronic Kidney Disease Denies: Alzheimer's Disease, Anxiety, Asthma, Atrial Fibrillation, Bipolar Disorder, Bronchitis, CAD, Cardia Arrhythmia, CHF, COPD, Crohn's Disease, Dementia, Diverticulitis, Emphysema, Gastritis, HIV, Hypercholesterolemia, Hyperthyroidism, Migraine, Mitral Valve Prolapse, Multiple Sclerosis, Pancreatitis, Paranoia, Parkinson's Disease, Peripheral Edema, Post Traumatic Stress Disorder, Pulmonary Embolism, Rheumatoid Arthritis, Schizophrenia, Seizures, Sickle Cell Disease, Sexually Transmitted Disease, Sleep Apnea, TIA - Surgical History Surgical History: Cholecystectomy (October 2012), Tonsillectomy Denies: Appendectomy, CABG, Carotid Endarterectomy, Coronary Stent, Pacemaker - Family History Family History: States: Unknown Family Hx - Immunization History Hx Influenza Vaccination: No Hx Pneumococcal Vaccination: No - Home Medications Home Medications: Ambulatory Orders Medication Instructions Recorded amLODIPine [Norvasc] 5 mg PO DAILY #30 tab 01/11/18 - Allergies Allergies/Adverse Reactions: Allergies Allergy/AdvReac Type Severity Reaction Status Date / Time No Known Allergies Allergy Verified 01/10/18 07:25 Review of Systems ROS Statement: Except As Marked, All Systems Reviewed And Found Negative Constitutional: Negative for: Fever, Chills Gastrointestinal: Negative for: Abdominal Pain Genitourinary Female: Negative for: Dysuria, Frequency Musculoskeletal: Positive for: Back Pain Physical Exam - Reviewed Nursing Documentation Reviewed: Yes Vital Signs Reviewed: Yes - Physical Exam Appears: Positive for: Non-toxic, No Acute Distress Head Exam: Positive for: ATRAUMATIC, NORMAL INSPECTION, NORMOCEPHALIC Skin: Positive for: Normal Color, Warm, DRY Eye Exam: Positive for: EOMI, Normal appearance, PERRL ENT: Positive for: Normal ENT Inspection Neck: Positive for: Normal, Painless ROM Cardiovascular/Chest: Positive for: Regular Rate, Rhythm Respiratory: Positive for: CNT, Normal Breath Sounds Gastrointestinal/Abdominal: Positive for: Normal Exam, Soft Back: Positive for: Normal Inspection Extremity: Positive for: Swelling (Left knee mild swelling No tenderness FROM) Neurological/Psych: Positive for: Awake, Alert, Normal Tone - Laboratory Results Result Diagrams: 10/05/18 13:00 10/05/18 13:00 - ECG O2 Sat by Pulse Oximetry: 98 Disposition - Clinical Impression Clinical Impression: Anemia - Patient ED Disposition Is Patient to be Admitted: Yes - Disposition Referrals: Debbie March MD [Primary Care Provider] - Disposition Time: 14:23 Condition: FAIR Forms: [facility] [facility] ([place]) - Pt Status Changed To: Hospital Disposition Of: Observation - POA Present On Arrival: None
[2018-10-05 13:17] LABS: BASO % 0.9 % (0.0-2.0); HEMOGLOBIN 7.3 g/dL (12.0-16.0); LYMPH # 0.8 K/uL (1.0-4.3); LYMPH % 24.7 % (20.0-40.0); MEAN CELL VOLUME 84.8 fl (81.0-99.0); MEAN CORPUSCULAR HEMOGLOBIN 27.7 pg (27.0-31.0); MEAN CORPUSCULAR HGB CONC 32.6 g/dL (33.0-37.0); MEAN PLATELET VOLUME 8.6 fl (7.2-11.7); MONO # 0.5 K/uL (0.0-0.8); MONO % 13.4 % (0.0-10.0); NEUT # 2.1 K/uL (1.8-7.0); NRBC % 0.2 % (0.0-0.0); RBC 2.66 Mil/uL (3.80-5.20); RED CELL DISTRIBUTION WIDTH 20.3 % (11.5-14.5); WHITE BLOOD COUNT 3.4 K/uL (4.8-10.8)
[2018-10-05 13:22] LABS: PLATELET COUNT 57 K/uL (130-400)
[2018-10-05 13:31] LABS: VENOUS BLOOD GAS PCO2 43 mmHg (40-60); VENOUS BLOOD GAS PO2 21 mm/Hg (30-55); VENOUS BLOOD PH 7.38 (7.32-7.43)
[2018-10-05 13:48] LABS: ALB/GLOB RATIO 1.1 (1.0-2.1); ALBUMIN 3.9 g/dL (3.5-5.0); CALCIUM 9.3 mg/dL (8.4-10.2)
--- NOTE | 2018-10-05 14:50 | RAD ---
Date of service: 10/05/2018 PROCEDURE: Left Knee Radiographs. HISTORY: Pain. No history of recent/ related trauma provided. COMPARISON: None. TECHNIQUE: 2 views obtained. FINDINGS: BONES: No acute fracture. Proliferative hypertrophic changes emanating from the femoral condyle and tibial plateau regions. JOINTS: Tricompartmental degenerative change. JOINT EFFUSION: Suprapatellar joint effusion, moderate sized. OTHER FINDINGS: None. IMPRESSION: Severe degenerative change. No acute fracture. Moderate suprapatellar effusion.
[2018-10-05 15:11] LABS: LYMPHOCYTE 29 % (20-50); MONOCYTE 9 % (0-10); NEUTROPHIL 62 % (42-75); TOTAL CELLS COUNTED 100
[2018-10-05 15:12] LABS: ANISOCYTOSIS MODERATE; HYPOCHROMIC MODERATE; PLATELET ESTIMATE DECREASED (NORMAL)
--- NOTE | 2018-10-05 15:22 | CP.PCM.HP ---
<Lizeth Whaley - Last Filed: 10/05/18 17:17> History of Present Illness - History of Present Illness History of Present Illness: 83 yo female with pmh of multiple myeloma with secondary anemia, dementia, essential hypertension, CKD stage IV not on dialysis, hypothyroidism presented to ED because of Left sided lower back pain. Patient is accompanied by daughter who provides most of the history. Left sided lower back pain began Chi (5 days prior to admission), is radiating to the front, 6/10 sharp like pain relieved with tylenol. Daughter states she was concerned it was a UTI and so she brought in her mother. Patient reports that she has felt weaker the past few days. Denies angina, dypsnea, nausea, vomiting, fevers, chills, abdominal pain, dysuria, urgency and frequency. No urinary or bowel incontinence. Last visit with Dr. Fina March was August [id number] as per daughter ROS: negative except for stated above in HPI. PMD: Dr. Fina March Hotel Registration Clerk: Dr. Garnett Medications: See med rec Surgical history: Repair of Hip fracture in 2014; Cholecystectomy 2012 and Hy sterectomy 40 years ago. Family history: non-contributory Social: Denies smoking history, illicit drug use or alcohol use. 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 CT scan advised Present on Admission - Present on Admission Any Indicators Present on Admission: No Past Patient History - Infectious Disease Hx of Infectious Diseases: None - Tetanus Immunizations Tetanus Immunization: Unknown - Past Medical History & Family History Past Medical History?: Yes - Past Social History Smoking Status: Never Smoked - CARDIAC Hx Atrial Fibrillation: No Hx Cardia Arrhythmia: No Hx Congestive Heart Failure: No Hx Hypercholesterolemia: No Hx Hypertension: Yes Hx Mitral Valve Prolapse: No Hx Pacemaker: No Hx Peripheral Edema: No - PULMONARY Hx Asthma: No Hx Bronchitis: No Hx Chronic Obstructive Pulmonary Disease (COPD): No Hx Emphysema: No Hx Pneumonia: Yes Hx Pulmonary Embolism: No Hx Sleep Apnea: No - NEUROLOGICAL Hx Alzheimer's Disease: No Hx Dementia: No Hx Migraine: No Hx Multiple Sclerosis: No Hx Parkinson's Disease: No Hx Seizures: No Hx Transient Ischemic Attacks (TIA): No - HEENT Hx HEENT Problems: Yes Hx Blind: No Hx Cataracts: Yes (b/l cataract surgery 2009?) Hx Deafness: No Hx Difficulty Chewing: No Hx Epistaxis: No Hx Glaucoma: No Hx Macular Degeneration: No - RENAL Hx Chronic Kidney Disease: Yes Hx Kidney Stones: Yes - ENDOCRINE/METABOLIC Hx Hyperthyroidism: No Hx Hypothyroidism: Yes - HEMATOLOGICAL/ONCOLOGICAL Hx Anemia: Yes Hx Human Immunodeficiency Virus (HIV): No Hx Sickle Cell Disease: No - INTEGUMENTARY Hx Basil Cell: No Hx Apodaca: No Hx Cellulitis: No Hx Eczema: No Hx Melanoma: No Hx Psoriasis: No Hx Squamous Cell: No - MUSCULOSKELETAL/RHEUMATOLOGICAL Hx Arthritis: Yes Hx Fractures: Yes Hx Osteoporosis: Yes Hx Rheumatoid Arthritis: No - GASTROINTESTINAL Hx Crohn's Disease: No Hx Diverticulitis: No Hx Gall Bladder Disease: Yes (gallbladder removed) Hx Gastritis: No Hx Pancreatitis: No - GENITOURINARY/GYNECOLOGICAL Hx Sexually Transmitted Disorders: No - PSYCHIATRIC Hx Anxiety: No Hx Bipolar Disorder: No Hx Depression: Yes Hx Paranoia: No Hx Post Traumatic Stress Disorder: No Hx Schizophrenia: No - SURGICAL HISTORY Hx Appendectomy: No Hx Carotid Endarterectomy: No Hx Cholecystectomy: Yes (October 2012) Hx Coronary Artery Bypass Graft: No Hx Coronary Stent: No Hx Tonsillectomy: Yes - ANESTHESIA Hx Anesthesia: Yes Hx Anesthesia Reactions: Yes (nausea) Hx Malignant Hyperthermia: No Meds Allergies/Adverse Reactions: Allergies Allergy/AdvReac Type Severity Reaction Status Date / Time No Known Allergies Allergy Verified 01/10/18 07:25 Physical Exam - Constitutional Appears: Non-toxic, No Acute Distress, Cachectic, Chronically Ill Additional comments: Pale - Eye Exam Eye Exam: Normal appearance Pupil Exam: PERRL Additional comments: Pale conjunctiva - ENT Exam ENT Exam: Mucous Membranes Moist - Respiratory Exam Respiratory Exam: Clear to Auscultation Bilateral, NORMAL BREATHING PATTERN. absent: Accessory Muscle Use, Chest Wall Tenderness, Decreased Breath Sounds, Prolonged Expiratory Phase, Rales, Rhonchi, Wheezes, Respiratory Distress, Stridor - Cardiovascular Exam Cardiovascular Exam: +S1, +S2 - GI/Abdominal Exam GI & Abdominal Exam: Normal Bowel Sounds, Soft. absent: Distended, Guarding, Rigid, Tenderness - Extremities Exam Extremities exam: Positive for: normal capillary refill, normal inspection, pedal pulses present. Negative for: calf tenderness, joint swelling, pedal edema, tenderness - Back Exam Back exam: NORMAL INSPECTION, tenderness (Left paraspinal tenderness on palpation. ). absent: CVA tenderness (L), CVA tenderness (R), vertebral tenderness - Neurological Exam Neurological exam: Alert, Oriented x3 - Psychiatric Exam Psychiatric exam: Normal Affect, Normal Mood - Skin Skin Exam: Dry, Intact, Normal Color, Warm Results - Vital Signs Recent Vital Signs: Last Vital Signs Temp 98.3 F 10/05/18 15:14 Pulse 73 10/05/18 15:14 Resp 20 10/05/18 15:14 BP 144/75 10/05/18 15:14 Pulse Ox 100 10/05/18 15:14 - Labs Result Diagrams: 10/05/18 13:00 10/05/18 13:00 Labs: Laboratory Results - last 24 hr 10/05/18 10/05/18 10/05/18 12:20 12:34 13:00 WBC 3.4 L RBC 2.66 L Hgb 7.3 L Hct 22.5 L MCV 84.8 MCH 27.7 MCHC 32.6 L RDW 20.3 H Plt Count 57 L MPV 8.6 Neut % (Auto) 60.0 Lymph % (Auto) 24.7 [place] % (Auto) 13.4 H Eos % (Auto) 1.0 Baso % (Auto) 0.9 Neut # (Auto) 2.1 Lymph # (Auto) 0.8 L [place] # (Auto) 0.5 Eos # (Auto) 0.0 Baso # (Auto) 0.0 Neutrophils % (Manual) 62 Lymphocytes % (Manual) 29 Monocytes % (Manual) 9 Platelet Estimate Decreased L Hypochromasia (manual) Moderate Anisocytosis (manual) Moderate pO2 21 L VBG pH 7.38 VBG pCO2 43 VBG HCO3 23.2 VBG Total CO2 26.7 VBG O2 Sat (Calc) 36.9 L VBG Base Excess 0.0 VBG Potassium 3.7 Sodium 137.0 Chloride 109.0 H Glucose 108 H Lactate 1.7 FiO2 21.0 Potassium Carbon Dioxide Anion Gap BUN Creatinine Est GFR ( Amer) Est GFR (Non-Af Amer) POC Glucose (mg/dL) 120 H Random Glucose Calcium Total Bilirubin AST ALT Alkaline Phosphatase Total Protein Albumin Globulin Albumin/Globulin Ratio Venous Blood Potassium 3.7 Blood Type Antibody Screen Antibody Identification Crossmatch BBK History Checked 10/05/18 10/05/18 13:00 13:00 WBC RBC Hgb Hct MCV MCH MCHC RDW Plt Count MPV Neut % (Auto) Lymph % (Auto) [place] % (Auto) Eos % (Auto) Baso % (Auto) Neut # (Auto) Lymph # (Auto) [place] # (Auto) Eos # (Auto) Baso # (Auto) Neutrophils % (Manual) Lymphocytes % (Manual) Monocytes % (Manual) Platelet Estimate Hypochromasia (manual) Anisocytosis (manual) pO2 VBG pH VBG pCO2 VBG HCO3 VBG Total CO2 VBG O2 Sat (Calc) VBG Base Excess VBG Potassium Sodium 137 Chloride 104 Glucose Lactate FiO2 Potassium 3.9 Carbon Dioxide 22 Anion Gap 15 BUN 55 H Creatinine 3.0 H Est GFR ( Amer) 18 Est GFR (Non-Af Amer) 15 POC Glucose (mg/dL) Random Glucose 104 Calcium 9.3 Total Bilirubin 0.6 AST 15 ALT 12 Alkaline Phosphatase 60 Total Protein 7.5 Albumin 3.9 Globulin 3.5 Albumin/Globulin Ratio 1.1 Venous Blood Potassium Blood Type AB POSITIVE Antibody Screen Positive Antibody Identification Anti E Crossmatch See Detail BBK History Checked Patient has bt Assessment & Plan - Assessment and Plan (Free Text) Assessment: 83 yo female with pmh of multiple myeloma with secondary anemia, history of essential hypertension, CKD stage IV not on dialysis, hypothyroidism admitted for symptomatic anemia secondary to multiple myeloma. 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 Garnett (patient's recovery rn) - BUN/CR: 55/ 3 ; GFR: 15 - Gentle IVF hydration Thrombocytopenia - Platelet count of 57 - F/U CBC in AM Essential hypertension - not currently on medications - Monitor BP at this time Hypothyroidism - C/W home medication (levothyroxine 50mcg) - F/U TSH DVT prophylaxis SCDs <Jeffery Atkinson D - Last Filed: 10/05/18 19:20> Results - Vital Signs Recent Vital Signs: Last Vital Signs Temp 98.4 F 10/05/18 16:30 Pulse 66 10/05/18 16:30 Resp 18 10/05/18 16:30 BP 166/69 H 10/05/18 16:30 Pulse Ox 100 10/05/18 16:30 - Labs Result Diagrams: 10/05/18 13:00 10/05/18 13:00 Labs: Laboratory Results - last 24 hr 10/05/18 10/05/18 10/05/18 12:20 12:34 13:00 WBC 3.4 L RBC 2.66 L Hgb 7.3 L Hct 22.5 L MCV 84.8 MCH 27.7 MCHC 32.6 L RDW 20.3 H Plt Count 57 L MPV 8.6 Neut % (Auto) 60.0 Lymph % (Auto) 24.7 [place] % (Auto) 13.4 H Eos % (Auto) 1.0 Baso % (Auto) 0.9 Neut # (Auto) 2.1 Lymph # (Auto) 0.8 L [place] # (Auto) 0.5 Eos # (Auto) 0.0 Baso # (Auto) 0.0 Neutrophils % (Manual) 62 Lymphocytes % (Manual) 29 Monocytes % (Manual) 9 Platelet Estimate Decreased L Hypochromasia (manual) Moderate Anisocytosis (manual) Moderate pO2 21 L VBG pH 7.38 VBG pCO2 43 VBG HCO3 23.2 VBG Total CO2 26.7 VBG O2 Sat (Calc) 36.9 L VBG Base Excess 0.0 VBG Potassium 3.7 Sodium 137.0 Chloride 109.0 H Glucose 108 H Lactate 1.7 FiO2 21.0 Potassium Carbon Dioxide Anion Gap BUN Creatinine Est GFR ( Amer) Est GFR (Non-Af Amer) POC Glucose (mg/dL) 120 H Random Glucose Calcium Total Bilirubin AST ALT Alkaline Phosphatase Total Protein Albumin Globulin Albumin/Globulin Ratio Venous Blood Potassium 3.7 Blood Type Antibody Screen Antibody Identification Crossmatch BBK History Checked 10/05/18 10/05/18 13:00 13:00 WBC RBC Hgb Hct MCV MCH MCHC RDW Plt Count MPV Neut % (Auto) Lymph % (Auto) [place] % (Auto) Eos % (Auto) Baso % (Auto) Neut # (Auto) Lymph # (Auto) [place] # (Auto) Eos # (Auto) Baso # (Auto) Neutrophils % (Manual) Lymphocytes % (Manual) Monocytes % (Manual) Platelet Estimate Hypochromasia (manual) Anisocytosis (manual) pO2 VBG pH VBG pCO2 VBG HCO3 VBG Total CO2 VBG O2 Sat (Calc) VBG Base Excess VBG Potassium Sodium 137 Chloride 104 Glucose Lactate FiO2 Potassium 3.9 Carbon Dioxide 22 Anion Gap 15 BUN 55 H Creatinine 3.0 H Est GFR ( Amer) 18 Est GFR (Non-Af Amer) 15 POC Glucose (mg/dL) Random Glucose 104 Calcium 9.3 Total Bilirubin 0.6 AST 15 ALT 12 Alkaline Phosphatase 60 Total Protein 7.5 Albumin 3.9 Globulin 3.5 Albumin/Globulin Ratio 1.1 Venous Blood Potassium Blood Type AB POSITIVE Antibody Screen Positive Antibody Identification Anti E Crossmatch See Detail BBK History Checked Patient has bt Attending/Attestation - Attestation I have personally seen and examined this patient.: Yes I have fully participated in the care of the patient.: Yes I have reviewed all pertinent clinical information: Yes Notes (Text): 10/05/18 19:19 Patient seen and examined with resident. Case discussed and agreed with assessment and plan of management.
--- NOTE | 2018-10-05 16:04 | RAD ---
Date of service: 10/05/2018 HISTORY: cough COMPARISON: 01/10/2018 TECHNIQUE: 1 view obtained. FINDINGS: LUNGS: No active pulmonary disease. PLEURA: No significant pleural effusion identified, no pneumothorax apparent. CARDIOVASCULAR: There is atherosclerotic calcification of the thoracic aorta. Normal heart size. There is a right para mediastinal mass at the level of the aortic arch. Further evaluation with computed tomography is advised. This was not evident on prior examination. OSSEOUS STRUCTURES: No significant abnormalities. VISUALIZED UPPER ABDOMEN: Normal. OTHER FINDINGS: None. IMPRESSION: Right paramediastinal mass at the level of the thoracic aortic arch. Further evaluation with computed tomography is advised.
[2018-10-05] MEDS ORDERED: Sodium Chloride 0.9% 500 ML IV SCH ×2 (16:45→17:16)
[2018-10-05] MEDS ORDERED: DRONABINOL 5 MG PO SCH (17:00)
[2018-10-05 20:44] LABS: SQUAMOUS EPITHIAL < 1 /hpf (0-5); URINE BACTERIA RARE (<OCC); URINE BILIRUBIN NEGATIVE (NEGATIVE); URINE BLOOD SMALL (NEGATIVE); URINE CLARITY CLEAR (Clear); URINE COLOR YELLOW (YELLOW); URINE GLUCOSE (UA) NEG (NEGATIVE); URINE LEUKOCYTE ESTERASE NEG Leu/uL (Negative); URINE PROTEIN 100 mg/dL (NEGATIVE); URINE UROBILINOGEN 0.2-1.0 mg/dL (0.2-1.0)
[2018-10-06] MEDS: Levothyroxine 50 MCG TAB PO SCH (06:54)
[2018-10-06] MEDS ORDERED: GINSENG PO SCH (09:00)
--- NOTE | 2018-10-06 09:12 | CP.PCM.CON ---
History of Present Illness - History of Present Illness History of Present Illness: This is a 83 yrs old female well known to me because she had multiple myeloma for which she received chemotherapy.When she went into remission it was stopped. 2 yrs ago her M protein started to go up but she was too weak and chemo was not restarted. She has been stable since then but her she has had CRF for which she is under the care of a planning division superintendent.She gets transfused when needed. She has also had a few episodes of UTI one requiring 3 weeks of hospitalization recently. Now she again has some dysuria and not producing much urine so she was brought to the ER and admitted for urine c/s and transfusion. .She got 2 units packed cells last night ,but did not get the result of the urine c/s yet. The urinalysis did not show evidence of bacteremia P/H; CRD,HTN, hypothyroidism,dementia, reyna m protein started to go up again about 2 yrs ago, but , hypothyroidism, mmild dementia, hy Past Patient History - Infectious Disease Hx of Infectious Diseases: None - Tetanus Immunizations Tetanus Immunization: Unknown - Past Medical History & Family History Past Medical History?: Yes - Past Social History Smoking Status: Never Smoked - CARDIAC Hx Atrial Fibrillation: No Hx Cardia Arrhythmia: No Hx Congestive Heart Failure: No Hx Hypercholesterolemia: No Hx Hypertension: Yes Hx Mitral Valve Prolapse: No Hx Pacemaker: No Hx Peripheral Edema: No - PULMONARY Hx Asthma: No Hx Bronchitis: No Hx Chronic Obstructive Pulmonary Disease (COPD): No Hx Emphysema: No Hx Pneumonia: Yes Hx Pulmonary Embolism: No Hx Sleep Apnea: No - NEUROLOGICAL Hx Alzheimer's Disease: No Hx Dementia: No Hx Migraine: No Hx Multiple Sclerosis: No Hx Parkinson's Disease: No Hx Seizures: No Hx Transient Ischemic Attacks (TIA): No - HEENT Hx HEENT Problems: Yes Hx Blind: No Hx Cataracts: Yes (b/l cataract surgery 2009?) Hx Deafness: No Hx Difficulty Chewing: No Hx Epistaxis: No Hx Glaucoma: No Hx Macular Degeneration: No - RENAL Hx Chronic Kidney Disease: Yes Hx Kidney Stones: Yes - ENDOCRINE/METABOLIC Hx Hyperthyroidism: No Hx Hypothyroidism: Yes - HEMATOLOGICAL/ONCOLOGICAL Hx Anemia: Yes Hx Human Immunodeficiency Virus (HIV): No Hx Sickle Cell Disease: No - INTEGUMENTARY Hx Basil Cell: No Hx Apodaca: No Hx Cellulitis: No Hx Eczema: No Hx Melanoma: No Hx Psoriasis: No Hx Squamous Cell: No - MUSCULOSKELETAL/RHEUMATOLOGICAL Hx Arthritis: Yes Hx Fractures: Yes Hx Osteoporosis: Yes Hx Rheumatoid Arthritis: No - GASTROINTESTINAL Hx Crohn's Disease: No Hx Diverticulitis: No Hx Gall Bladder Disease: Yes (gallbladder removed) Hx Gastritis: No Hx Pancreatitis: No - GENITOURINARY/GYNECOLOGICAL Hx Sexually Transmitted Disorders: No - PSYCHIATRIC Hx Anxiety: No Hx Bipolar Disorder: No Hx Depression: Yes Hx Paranoia: No Hx Post Traumatic Stress Disorder: No Hx Schizophrenia: No - SURGICAL HISTORY Hx Appendectomy: No Hx Carotid Endarterectomy: No Hx Cholecystectomy: Yes (October 2012) Hx Coronary Artery Bypass Graft: No Hx Coronary Stent: No Hx Tonsillectomy: Yes - ANESTHESIA Hx Anesthesia: Yes Hx Anesthesia Reactions: Yes (nausea) Hx Malignant Hyperthermia: No Meds Allergies/Adverse Reactions: Allergies Allergy/AdvReac Type Severity Reaction Status Date / Time No Known Allergies Allergy Verified 01/10/18 07:25 - Medications Medications: Current Medications Acetaminophen (Tylenol 325mg Tab) 650 mg PO Q4 PRN PRN Reason: Pain, moderate (4-7) Acetaminophen (Tylenol 325mg Tab) 975 mg PO Q6 PRN PRN Reason: Pain, severe (8-10) Escitalopram Oxalate (Lexapro) 10 mg PO DAILY [facility] Famotidine (Pepcid) 20 mg PO BID [facility] Last Admin: 10/05/18 18:02 Dose: 20 mg Home Med (Dronabinol [Marinol]) 5 mg PO BID [facility] Home Med (Febuxostat [Uloric]) 80 mg PO DAILY [facility] Home Med (Solifenacin Succinate [Vesicare]) 5 mg PO DAILY [facility] Sodium Chloride (Sodium Chloride 0.9%) 500 mls @ 70 mls/hr IV .[id number] [facility] Last Admin: 10/06/18 06:54 Dose: 70 mls/hr Levothyroxine Sodium (Synthroid) 50 mcg PO DAILY@0630 [facility] Last Admin: 10/06/18 06:54 Dose: 50 mcg Lidocaine (Lidoderm) 1 ea TD DAILY [facility] Sevelamer HCl (Renagel) 800 mg PO TID [facility] Last Admin: 10/05/18 18:02 Dose: 800 mg Physical Exam - Additional Findings Additional findings: Physical exam; Alert,well oriented, in no acute distress Neck; supple, no adenopathy Chest; clear, no rales or rhonchi Heart, rsr, no murmur Abd; soft,no mass,no h/s megaly Results - Vital Signs Recent Vital Signs: Last Vital Signs Temp 98.2 F 10/06/18 08:00 Pulse 74 10/06/18 08:00 Resp 18 10/06/18 08:00 BP 163/69 H 10/06/18 08:00 Pulse Ox 99 10/06/18 08:00 - Labs Result Diagrams: 10/05/18 13:00 10/05/18 13:00 Labs: Laboratory Results - last 24 hr 10/05/18 10/05/18 10/05/18 12:20 12:34 13:00 WBC 3.4 L RBC 2.66 L Hgb 7.3 L Hct 22.5 L MCV 84.8 MCH 27.7 MCHC 32.6 L RDW 20.3 H Plt Count 57 L MPV 8.6 Neut % (Auto) 60.0 Lymph % (Auto) 24.7 [place] % (Auto) 13.4 H Eos % (Auto) 1.0 Baso % (Auto) 0.9 Neut # (Auto) 2.1 Lymph # (Auto) 0.8 L [place] # (Auto) 0.5 Eos # (Auto) 0.0 Baso # (Auto) 0.0 Neutrophils % (Manual) 62 Lymphocytes % (Manual) 29 Monocytes % (Manual) 9 Platelet Estimate Decreased L Hypochromasia (manual) Moderate Anisocytosis (manual) Moderate pO2 21 L VBG pH 7.38 VBG pCO2 43 VBG HCO3 23.2 VBG Total CO2 26.7 VBG O2 Sat (Calc) 36.9 L VBG Base Excess 0.0 VBG Potassium 3.7 Sodium 137.0 Chloride 109.0 H Glucose 108 H Lactate 1.7 FiO2 21.0 Potassium Carbon Dioxide Anion Gap BUN Creatinine Est GFR ( Amer) Est GFR (Non-Af Amer) POC Glucose (mg/dL) 120 H Random Glucose Calcium Total Bilirubin AST ALT Alkaline Phosphatase Total Protein Albumin Globulin Albumin/Globulin Ratio Venous Blood Potassium 3.7 Urine Color Urine Clarity Urine pH Ur Specific [place] Urine Protein Urine Glucose (UA) Urine Ketones Urine Blood Urine Nitrate Urine Bilirubin Urine Urobilinogen Ur Leukocyte Esterase Urine RBC (Auto) Urine Microscopic WBC Ur Squamous Epith Cells Urine Bacteria Blood Type Antibody Screen Antibody Identification Crossmatch BBK History Checked 10/05/18 10/05/18 10/05/18 13:00 13:00 20:33 WBC RBC Hgb Hct MCV MCH MCHC RDW Plt Count MPV Neut % (Auto) Lymph % (Auto) [place] % (Auto) Eos % (Auto) Baso % (Auto) Neut # (Auto) Lymph # (Auto) [place] # (Auto) Eos # (Auto) Baso # (Auto) Neutrophils % (Manual) Lymphocytes % (Manual) Monocytes % (Manual) Platelet Estimate Hypochromasia (manual) Anisocytosis (manual) pO2 VBG pH VBG pCO2 VBG HCO3 VBG Total CO2 VBG O2 Sat (Calc) VBG Base Excess VBG Potassium Sodium 137 Chloride 104 Glucose Lactate FiO2 Potassium 3.9 Carbon Dioxide 22 Anion Gap 15 BUN 55 H Creatinine 3.0 H Est GFR ( Amer) 18 Est GFR (Non-Af Amer) 15 POC Glucose (mg/dL) Random Glucose 104 Calcium 9.3 Total Bilirubin 0.6 AST 15 ALT 12 Alkaline Phosphatase 60 Total Protein 7.5 Albumin 3.9 Globulin 3.5 Albumin/Globulin Ratio 1.1 Venous Blood Potassium Urine Color Yellow Urine Clarity Clear Urine pH 6.0 Ur Specific [place] 1.010 Urine Protein 100 Urine Glucose (UA) Neg Urine Ketones Negative Urine Blood Small Urine Nitrate Negative Urine Bilirubin Negative Urine Urobilinogen 0.2-1.0 Ur Leukocyte Esterase Neg Urine RBC (Auto) 4 H Urine Microscopic WBC < 1 Ur Squamous Epith Cells < 1 Urine Bacteria Rare Blood Type AB POSITIVE Antibody Screen Positive Antibody Identification Anti E Crossmatch See Detail BBK History Checked Patient has bt Assessment & Plan - Assessment and Plan (Free Text) Assessment: Impression; Anemia secondary to multiple myeloma and CRD. Possible UTI Plan: Plan; she was transfused two units of packed cells last night.Will ck post transfusion and Urine c/S
--- NOTE | 2018-10-06 09:52 | CP.PCM.CON ---
History of Present Illness - History of Present Illness History of Present Illness: RENAL CONSULT S: Pt seen in observation status. Pt hx of CKD 4/5 following w/ Dr. Garnett admitted for anemia. She state she came to hospital for incontinence but was poor historian could not tell me much else. Hx of CKD from DM and HTN. Hx of MM following w/ Dr. March. ros: a full detailed ros is negative except as in my hpi pmH: ckd 4/5 htn dm mm famhx:+htn sochx: no active smoke etoh or ivdu pe: VSS gen:nad sclera: anicteric op: clear neck: Supple cv: +S1+s2 no rub lungs: CTA b/l abd: SOft nt nd no organomegaly ext: No edema neuro: alert follows commands no focal deficit psych: nml affect skin no rash imp: CKD5, HTN kidney disease, diabetic kidney disease, anemia, Myeloma, Acidosis plan: Renal function stable transfusiosn per oncology DM stable acidosis on na hco3 as outpt but looks stable here will monitor Past Patient History - Infectious Disease Hx of Infectious Diseases: None - Tetanus Immunizations Tetanus Immunization: Unknown - Past Medical History & Family History Past Medical History?: Yes - Past Social History Smoking Status: Never Smoked - CARDIAC Hx Atrial Fibrillation: No Hx Cardia Arrhythmia: No Hx Congestive Heart Failure: No Hx Hypercholesterolemia: No Hx Hypertension: Yes Hx Mitral Valve Prolapse: No Hx Pacemaker: No Hx Peripheral Edema: No - PULMONARY Hx Asthma: No Hx Bronchitis: No Hx Chronic Obstructive Pulmonary Disease (COPD): No Hx Emphysema: No Hx Pneumonia: Yes Hx Pulmonary Embolism: No Hx Sleep Apnea: No - NEUROLOGICAL Hx Alzheimer's Disease: No Hx Dementia: No Hx Migraine: No Hx Multiple Sclerosis: No Hx Parkinson's Disease: No Hx Seizures: No Hx Transient Ischemic Attacks (TIA): No - HEENT Hx HEENT Problems: Yes Hx Blind: No Hx Cataracts: Yes (b/l cataract surgery 2009?) Hx Deafness: No Hx Difficulty Chewing: No Hx Epistaxis: No Hx Glaucoma: No Hx Macular Degeneration: No - RENAL Hx Chronic Kidney Disease: Yes Hx Kidney Stones: Yes - ENDOCRINE/METABOLIC Hx Hyperthyroidism: No Hx Hypothyroidism: Yes - HEMATOLOGICAL/ONCOLOGICAL Hx Anemia: Yes Hx Human Immunodeficiency Virus (HIV): No Hx Sickle Cell Disease: No - INTEGUMENTARY Hx Basil Cell: No Hx Apodaca: No Hx Cellulitis: No Hx Eczema: No Hx Melanoma: No Hx Psoriasis: No Hx Squamous Cell: No - MUSCULOSKELETAL/RHEUMATOLOGICAL Hx Arthritis: Yes Hx Fractures: Yes Hx Osteoporosis: Yes Hx Rheumatoid Arthritis: No - GASTROINTESTINAL Hx Crohn's Disease: No Hx Diverticulitis: No Hx Gall Bladder Disease: Yes (gallbladder removed) Hx Gastritis: No Hx Pancreatitis: No - GENITOURINARY/GYNECOLOGICAL Hx Sexually Transmitted Disorders: No - PSYCHIATRIC Hx Anxiety: No Hx Bipolar Disorder: No Hx Depression: Yes Hx Paranoia: No Hx Post Traumatic Stress Disorder: No Hx Schizophrenia: No - SURGICAL HISTORY Hx Appendectomy: No Hx Carotid Endarterectomy: No Hx Cholecystectomy: Yes (October 2012) Hx Coronary Artery Bypass Graft: No Hx Coronary Stent: No Hx Tonsillectomy: Yes - ANESTHESIA Hx Anesthesia: Yes Hx Anesthesia Reactions: Yes (nausea) Hx Malignant Hyperthermia: No Meds Allergies/Adverse Reactions: Allergies Allergy/AdvReac Type Severity Reaction Status Date / Time No Known Allergies Allergy Verified 01/10/18 07:25 - Medications Medications: Current Medications Acetaminophen (Tylenol 325mg Tab) 650 mg PO Q4 PRN PRN Reason: Pain, moderate (4-7) Acetaminophen (Tylenol 325mg Tab) 975 mg PO Q6 PRN PRN Reason: Pain, severe (8-10) Escitalopram Oxalate (Lexapro) 10 mg PO DAILY [facility] Famotidine (Pepcid) 20 mg PO BID [facility] Last Admin: 10/05/18 18:02 Dose: 20 mg Home Med (Dronabinol [Marinol]) 5 mg PO BID [facility] Home Med (Febuxostat [Uloric]) 80 mg PO DAILY [facility] Home Med (Solifenacin Succinate [Vesicare]) 5 mg PO DAILY [facility] Sodium Chloride (Sodium Chloride 0.9%) 500 mls @ 70 mls/hr IV .Q7H9M [facility] Last Admin: 10/06/18 06:54 Dose: 70 mls/hr Levothyroxine Sodium (Synthroid) 50 mcg PO DAILY@0630 [facility] Last Admin: 10/06/18 06:54 Dose: 50 mcg Lidocaine (Lidoderm) 1 ea TD DAILY [facility] Sevelamer HCl (Renagel) 800 mg PO TID [facility] Last Admin: 10/05/18 18:02 Dose: 800 mg Results - Vital Signs Recent Vital Signs: Last Vital Signs Temp 98.2 F 05/22/19 08:00 Pulse 74 10/06/18 08:00 Resp 18 10/06/18 08:00 BP 163/69 H 10/06/18 08:00 Pulse Ox 99 10/06/18 08:00 - Labs Result Diagrams: 10/05/18 13:00 10/05/18 13:00 Labs: Laboratory Results - last 24 hr 10/05/18 10/05/18 10/05/18 12:20 12:34 13:00 WBC 3.4 L RBC 2.66 L Hgb 7.3 L Hct 22.5 L MCV 84.8 MCH 27.7 MCHC 32.6 L RDW 20.3 H Plt Count 57 L MPV 8.6 Neut % (Auto) 60.0 Lymph % (Auto) 24.7 Hendricks % (Auto) 13.4 H Eos % (Auto) 1.0 Baso % (Auto) 0.9 Neut # (Auto) 2.1 Lymph # (Auto) 0.8 L Hendricks # (Auto) 0.5 Eos # (Auto) 0.0 Baso # (Auto) 0.0 Neutrophils % (Manual) 62 Lymphocytes % (Manual) 29 Monocytes % (Manual) 9 Platelet Estimate Decreased L Hypochromasia (manual) Moderate Anisocytosis (manual) Moderate pO2 21 L VBG pH 7.38 VBG pCO2 43 VBG HCO3 23.2 VBG Total CO2 26.7 VBG O2 Sat (Calc) 36.9 L VBG Base Excess 0.0 VBG Potassium 3.7 Sodium 137.0 Chloride 109.0 H Glucose 108 H Lactate 1.7 FiO2 21.0 Potassium Carbon Dioxide Anion Gap BUN Creatinine Est GFR ( Amer) Est GFR (Non-Af Amer) POC Glucose (mg/dL) 120 H Random Glucose Calcium Total Bilirubin AST ALT Alkaline Phosphatase Total Protein Albumin Globulin Albumin/Globulin Ratio Venous Blood Potassium 3.7 Urine Color Urine Clarity Urine pH Ur Specific Clute Urine Protein Urine Glucose (UA) Urine Ketones Urine Blood Urine Nitrate Urine Bilirubin Urine Urobilinogen Ur Leukocyte Esterase Urine RBC (Auto) Urine Microscopic WBC Ur Squamous Epith Cells Urine Bacteria Blood Type Antibody Screen Antibody Identification Crossmatch BBK History Checked 10/05/18 10/05/18 10/05/18 13:00 13:00 20:33 WBC RBC Hgb Hct MCV MCH MCHC RDW Plt Count MPV Neut % (Auto) Lymph % (Auto) Hendricks % (Auto) Eos % (Auto) Baso % (Auto) Neut # (Auto) Lymph # (Auto) Hendricks # (Auto) Eos # (Auto) Baso # (Auto) Neutrophils % (Manual) Lymphocytes % (Manual) Monocytes % (Manual) Platelet Estimate Hypochromasia (manual) Anisocytosis (manual) pO2 VBG pH VBG pCO2 VBG HCO3 VBG Total CO2 VBG O2 Sat (Calc) VBG Base Excess VBG Potassium Sodium 137 Chloride 104 Glucose Lactate FiO2 Potassium 3.9 Carbon Dioxide 22 Anion Gap 15 BUN 55 H Creatinine 3.0 H Est GFR ( Amer) 18 Est GFR (Non-Af Amer) 15 POC Glucose (mg/dL) Random Glucose 104 Calcium 9.3 Total Bilirubin 0.6 AST 15 ALT 12 Alkaline Phosphatase 60 Total Protein 7.5 Albumin 3.9 Globulin 3.5 Albumin/Globulin Ratio 1.1 Venous Blood Potassium Urine Color Yellow Urine Clarity Clear Urine pH 6.0 Ur Specific Clute 1.010 Urine Protein 100 Urine Glucose (UA) Neg Urine Ketones Negative Urine Blood Small Urine Nitrate Negative Urine Bilirubin Negative Urine Urobilinogen 0.2-1.0 Ur Leukocyte Esterase Neg Urine RBC (Auto) 4 H Urine Microscopic WBC < 1 Ur Squamous Epith Cells < 1 Urine Bacteria Rare Blood Type AB POSITIVE Antibody Screen Positive Antibody Identification Anti E Crossmatch See Detail BBK History Checked Patient has bt
--- NOTE | 2018-10-06 10:39 | CP.PCM.PN ---
<Lizeth Whaley - Last Filed: 10/06/18 15:39> Subjective - Date & Time of Evaluation Date of Evaluation: 10/06/18 (n) Time of Evaluation: 10:37 - Subjective Subjective: Patient seen and examined at bedside. Reports chronic poor appetite. Denies chest pain, shortness of breath, dypsnea, abdominal pain. Objective - Vital Signs/Intake and Output Vital Signs (last 24 hours): Temp Pulse Resp BP Pulse Ox 98.2 F 72 18 163/69 H 98 10/06/18 08:00 10/06/18 09:10 10/06/18 08:00 10/06/18 08:00 10/06/18 09:10 Intake and Output: 10/06/18 10/06/18 06:59 18:59 Intake Total 650 Balance 650 - Medications Medications: Current Medications Acetaminophen (Tylenol 325mg Tab) 650 mg PO Q4 PRN PRN Reason: Pain, moderate (4-7) Acetaminophen (Tylenol 325mg Tab) 975 mg PO Q6 PRN PRN Reason: Pain, severe (8-10) Escitalopram Oxalate (Lexapro) 10 mg PO DAILY [facility] Last Admin: 10/06/18 10:20 Dose: 10 mg Famotidine (Pepcid) 20 mg PO BID [facility] Last Admin: 10/06/18 10:21 Dose: 20 mg Home Med (Dronabinol [Marinol]) 5 mg PO BID [facility] Home Med (Febuxostat [Uloric]) 80 mg PO DAILY [facility] Home Med (Solifenacin Succinate [Vesicare]) 5 mg PO DAILY [facility] Sodium Chloride (Sodium Chloride 0.9%) 500 mls @ 70 mls/hr IV .Q7H9M [facility] Last Admin: 10/06/18 06:54 Dose: 70 mls/hr Levothyroxine Sodium (Synthroid) 50 mcg PO DAILY@0630 [facility] Last Admin: 10/06/18 06:54 Dose: 50 mcg Lidocaine (Lidoderm) 1 ea TD DAILY [facility] Sevelamer HCl (Renagel) 800 mg PO TID [facility] Last Admin: 10/06/18 10:21 Dose: 800 mg - Labs Labs: 10/05/18 13:00 10/05/18 13:00 - Constitutional Appears: No Acute Distress, Cachectic, Chronically Ill - Eye Exam Eye Exam: Normal appearance - ENT Exam ENT Exam: Mucous Membranes Moist - Respiratory Exam Respiratory Exam: Decreased Breath Sounds, Clear to Ausculation Bilateral, NORMAL BREATHING PATTERN. absent: Rales, Rhonchi, Wheezes - Cardiovascular Exam Cardiovascular Exam: +S1, +S2 - GI/Abdominal Exam GI & Abdominal Exam: Soft, Normal Bowel Sounds. absent: Distended, Guarding, Rigid, Tenderness, Rebound - Extremities Exam Extremities Exam: Normal Capillary Refill, Normal Inspection. absent: Calf Tenderness, Pedal Edema, Tenderness - Neurological Exam Neurological Exam: Alert, Awake, Oriented x3 - Psychiatric Exam Psychiatric exam: Normal Affect, Normal Mood - Skin Skin Exam: Dry, Intact, Normal Color, Warm Assessment and Plan - Assessment and Plan (Free Text) Assessment: 83 yo female with pmh of multiple myeloma with secondary anemia, history of essential hypertension, CKD stage IV not on dialysis, hypothyroidism admitted for symptomatic anemia secondary to multiple myeloma. Plan: Symptomatic anemia secondary to multiple myeloma - secondary to Multiple Myeloma - Vital signs stable - repeat H/H: 7.3/ 22.5 s/p 2 units pRBC transfusion repeat H/H: 10.6/32.0 - Dr. 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 Bryan Chronic kidney disease stage IV, secondary to multiple myeloma - Nephrology consult Dr. De Guzman - will monitor - BUN/CR: 55/ 3 ; GFR: 15 - Gentle IVF hydration Thrombocytopenia - Platelet count of 55 - F/U CBC in AM Essential hypertension - not currently on medications - Monitor BP at this time Hypothyroidism - C/W home medication (levothyroxine 50mcg) - TSH (3.46) DVT prophylaxis SCDs Given thrombocytopenia- no lovenox at this time <Jeffery Atkinson D - Last Filed: 10/06/18 16:07> Objective - Vital Signs/Intake and Output Vital Signs (last 24 hours): Temp Pulse Resp BP Pulse Ox 98.7 F 66 18 153/75 H 100 10/06/18 12:00 10/06/18 12:00 10/06/18 12:00 10/06/18 12:00 10/06/18 12:00 Intake and Output: 10/06/18 10/06/18 06:59 18:59 Intake Total 650 Balance 650 - Medications Medications: Current Medications Acetaminophen (Tylenol 325mg Tab) 650 mg PO Q4 PRN PRN Reason: Pain, moderate (4-7) Acetaminophen (Tylenol 325mg Tab) 975 mg PO Q6 PRN PRN Reason: Pain, severe (8-10) Escitalopram Oxalate (Lexapro) 10 mg PO DAILY [facility] Last Admin: 10/06/18 10:20 Dose: 10 mg Famotidine (Pepcid) 20 mg PO BID [facility] Last Admin: 10/06/18 10:21 Dose: 20 mg Home Med (Dronabinol [Marinol]) 5 mg PO BID [facility] Home Med (Febuxostat [Uloric]) 80 mg PO DAILY [facility] Home Med (Solifenacin Succinate [Vesicare]) 5 mg PO DAILY [facility] Sodium Chloride (Sodium Chloride 0.9%) 500 mls @ 70 mls/hr IV .Q7H9M [facility] Last Admin: 10/06/18 06:54 Dose: 70 mls/hr Levothyroxine Sodium (Synthroid) 50 mcg PO DAILY@0630 [facility] Last Admin: 10/06/18 06:54 Dose: 50 mcg Lidocaine (Lidoderm) 1 ea TD DAILY [facility] Last Admin: 10/06/18 10:47 Dose: Not Given Metoclopramide HCl (Reglan) 5 mg PO ONCE ONE Stop: 10/06/18 16:04 Sevelamer HCl (Renagel) 800 mg PO TID [facility] Last Admin: 10/06/18 14:08 Dose: 800 mg - Labs Labs: 10/06/18 11:45 10/06/18 11:45 Attending/Attestation - Attestation I have personally seen and examined this patient.: Yes I have fully participated in the care of the patient.: Yes I have reviewed all pertinent clinical information, including history, physical exam and plan: Yes Notes (Text): 10/06/18 16:05 Patient seen and examined with resident. Case discussed and agreed with assessment.
[2018-10-06] MEDS: Lidocaine 5% Patch TD SCH (10:47)
[2018-10-06 12:08] LABS: BASO % 0.8 % (0.0-2.0); EOS % 1.3 % (0.0-4.0); HEMOGLOBIN 10.6 g/dL (12.0-16.0); LYMPH # 0.8 K/uL (1.0-4.3); LYMPH % 21.2 % (20.0-40.0); MEAN CELL VOLUME 84.7 fl (81.0-99.0); MEAN CORPUSCULAR HEMOGLOBIN 28.1 pg (27.0-31.0); MEAN CORPUSCULAR HGB CONC 33.2 g/dL (33.0-37.0); MEAN PLATELET VOLUME 8.9 fl (7.2-11.7); MONO # 0.4 K/uL (0.0-0.8); MONO % 9.9 % (0.0-10.0); NEUT # 2.5 K/uL (1.8-7.0); NEUT % 66.8 % (50.0-75.0); NRBC % 0.1 % (0.0-0.0); RBC 3.77 Mil/uL (3.80-5.20); RED CELL DISTRIBUTION WIDTH 17.8 % (11.5-14.5); WHITE BLOOD COUNT 3.7 K/uL (4.8-10.8)
--- NOTE | 2018-10-06 12:08 | CT ---
Date of service: 10/05/2018 PROCEDURE: CT Chest without contrast HISTORY: right paramediasinal mass on chest xray COMPARISON: October 05, 2018. Single-view chest 03/12/2016 two-view chest. TECHNIQUE: Contiguous axial images were obtained through the chest without intravenous contrast enhancement. Sagittal and coronal reconstructions were performed. Radiation dose: Total exam DLP = 189.03 mGy-cm. This CT exam was performed using one or more of the following dose reduction techniques: Automated exposure control, adjustment of the mA and/or kV according to patient size, and/or use of iterative reconstruction technique. FINDINGS: LUNGS: Complex mass right upper lobe. This includes thick wall cavitary wall, fluid and debris levels. In conjunction with calcified lymph nodes the findings likely are the sequela of prior granulomatous exposure. The mass measures 4.2 x 3.6 x 5 cm. Similar findings in retrospect identified on a chest x-ray from 03/12/2016. Global volume loss right lung. Incidental findings include lower lobe dependent atelectasis/infiltrates right lower lobe greater than left. MEDIASTINUM: Unremarkable thoracic aorta. No aneurysm. Normal sized heart. Main pulmonary artery unremarkable. No vascular congestion. Middle mediastinal and azygos lymph nodes densely calcified likely the sequela of prior granulomatous exposure. Atherosclerotic calcifications identified primarily aortic arch. Non aneurysmal thoracic aorta also containing calcifications. PLEURA: No pleural fluid. No pneumothorax.Incidental finding(s): Pleural based plaques with punctate calcifications bilaterally suggest prior asbestos exposure. BONES: No fracture. No destructive lesion. UPPER ABDOMEN: Grossly unremarkable. Findings related prior cholecystectomy. Multiple cysts, parapelvic cysts. OTHER FINDINGS: Partially calcified right thyroid nodule 1.5 cm. Small hiatal hernia. IMPRESSION: Complex right upper lobe mass, on my ostomy dowell chronic. Findings likely represent prior exposure to granulomatous disease. Calcified nodule right thyroid lobe. Elective follow-up advised. Additional benign and/or incidental findings described above. Concordant results (preliminary interpretation) provided by [employer]. Procedure Completed: 18:34. Preliminary Report: Interpreted and electronically signed: 20:31. Final Interpretation: 12:03. October 06, 2018.
--- NOTE | 2018-10-06 12:12 | PCM.PCON ---
History of Present Illness - History of Present Illness History of Present Illness: Patient is a 83 year old female who came to the ED complaining of lower back pain that got worse the last few days prior. She also complained of left knee swelling. PMH: Multiple myeloma, anemia, depression, DM II, Gall Bladder disease, HTN, Hypothyroidism, CKD IV Soc hx : live alone, denies smoking, drinking, or drug use Fam hx: Unknown CXR 10/05: Right Paramediastinal mass at the level of the thoracic aortic arch Chest CT 10/05: chronic right upper lobe mass Knee Xray 10/05: No acute fx, moderate suprapatellar effusion Review of Systems - Musculoskeletal Musculoskeletal: Back Pain Additional comments: lower back pain Physical Exam - Constitutional Appears: No Acute Distress - Head Exam Head Exam: ATRAUMATIC, NORMAL INSPECTION, NORMOCEPHALIC - Eye Exam Eye Exam: Normal appearance, PERRL - ENT Exam ENT Exam: Mucous Membranes Moist - Respiratory Exam Respiratory Exam: Clear to Auscultation Bilateral, NORMAL BREATHING PATTERN - Cardiovascular Exam Cardiovascular Exam: REGULAR RHYTHM - GI/Abdominal Exam GI & Abdominal Exam: Normal Bowel Sounds - Extremities Exam Extremities exam: Positive for: pedal pulses present Additional comments: left knee swelling - Neurological Exam Neurological exam: Alert, Oriented x3 Additional comments: uses walker at home - Psychiatric Exam Psychiatric exam: Normal Affect, Normal Mood - Skin Skin Exam: Dry, Pallor, Warm Palliative Care Assessment - Modified MRC Dyspnea Scale Modified MRC Dyspnea Scale: Not troubled by breathlessness except on strenous exercise Grade: 1 - Pain Scale Pain Score: 5 Pain Scale Used: Numeric - Pain Location Upper or Lower: Lower Pain Location Body Site: Back - Pain Description Description: Constant Acceptable Level of Pain: 5 Aggravating Factors: Exercise/Activity Alleviating Factors/Management Techniques: Medication - Diony Scale Sensory Perception: No Impairment Moisture: Occasionally Moist Activity: Walks Occasionally Mobility: Slightly Impaired Nutrition: Adequate Friction & Shear: Potential Problem Total Score - Skin Risk Assessment: 18 - Psychosocial Distress Patient screened for psychosocial distress: Yes Palliative Care - Goals Goal(s) of care: Goals of care discussion held with patient. She states that she would like to improve her mobility and ability to do all her ADLs because she lives alone at home. She says that daughter is able to help when she can. She says she is usually able to get around very well using her walker while she is at home but the past few days prior to admission have been difficult because of pain. Code Status: Full Code Treatment Goal(s): Alleviate symptoms, Improve ADLs, Improve quality of life Assessment & Plan - Assessment and Plan (Free Text) Assessment: Full Code, There is no advanced directive in the chart Palliative Performance Scale is 60% I reviewed medical records, diagnostic studies, examined and interviewed patient at the bedside, Patient daughter also present at this time Impression Pain Decreased Mobility Loss of appetite Suggestion Assess for pain Q4h, has tylenol prn Continue Physical Therapy Encourage PO feeds as tolerated Will continue Goals of Care discussion Palliative Care will remain on board as needed Time Spent with patient 50 min
[2018-10-06 12:17] LABS: CALCIUM 9.2 mg/dL (8.4-10.2)
--- NOTE | 2018-10-06 17:58 | CARD ---
APPROVED REPORT Date of service: 10/05/2018 EKG Measurement Heart [id number] <Conclusion> Normal sinus rhythm with sinus arrhythmia Nonspecific T wave abnormality Abnormal ECG
[2018-10-07 00:58] VITALS: O2SAT 98
[2018-10-07 06:05] LABS: HEMOGLOBIN 10.2 g/dL (12.0-16.0); MEAN CELL VOLUME 83.5 fl (81.0-99.0); MEAN CORPUSCULAR HEMOGLOBIN 28.6 pg (27.0-31.0); MEAN CORPUSCULAR HGB CONC 34.3 g/dL (33.0-37.0); RBC 3.56 Mil/uL (3.80-5.20); RED CELL DISTRIBUTION WIDTH 17.7 % (11.5-14.5); WHITE BLOOD COUNT 3.2 K/uL (4.8-10.8)
[2018-10-07 06:12] LABS: CALCIUM 9.1 mg/dL (8.4-10.2)
[2018-10-07] MEDS: Levothyroxine 50 MCG TAB PO SCH (06:32)
[2018-10-07 08:54] VITALS: BP 168/81; PULSE 73; RESP 18; TEMP 98.2
[2018-10-07] MEDS: Lidocaine 5% Patch TD SCH (08:56)
--- NOTE | 2018-10-07 09:06 | CP.PCM.CON ---
History of Present Illness - History of Present Illness History of Present Illness: Pt's blood count is stable with a hgb of 10.2, the bun and creatinine is slowly decreasing.The mediastinal mass mentioned earlier on the ct scan seems to be secondary to chronic granulamatous disease which is unaltered from 2016. Urine c/s in negative after 24 hrs Past Patient History - Infectious Disease Hx of Infectious Diseases: None - Tetanus Immunizations Tetanus Immunization: Unknown - Past Medical History & Family History Past Medical History?: Yes - Past Social History Smoking Status: Never Smoked - CARDIAC Hx Atrial Fibrillation: No Hx Cardia Arrhythmia: No Hx Congestive Heart Failure: No Hx Hypercholesterolemia: No Hx Hypertension: Yes Hx Mitral Valve Prolapse: No Hx Pacemaker: No Hx Peripheral Edema: No - PULMONARY Hx Asthma: No Hx Bronchitis: No Hx Chronic Obstructive Pulmonary Disease (COPD): No Hx Emphysema: No Hx Pneumonia: Yes Hx Pulmonary Embolism: No Hx Sleep Apnea: No - NEUROLOGICAL Hx Alzheimer's Disease: No Hx Dementia: No Hx Migraine: No Hx Multiple Sclerosis: No Hx Parkinson's Disease: No Hx Seizures: No Hx Transient Ischemic Attacks (TIA): No - HEENT Hx HEENT Problems: Yes Hx Blind: No Hx Cataracts: Yes (b/l cataract surgery 2009?) Hx Deafness: No Hx Difficulty Chewing: No Hx Epistaxis: No Hx Glaucoma: No Hx Macular Degeneration: No - RENAL Hx Chronic Kidney Disease: Yes Hx Kidney Stones: Yes - ENDOCRINE/METABOLIC Hx Hyperthyroidism: No Hx Hypothyroidism: Yes - HEMATOLOGICAL/ONCOLOGICAL Hx Anemia: Yes Hx Human Immunodeficiency Virus (HIV): No Hx Sickle Cell Disease: No - INTEGUMENTARY Hx Basil Cell: No Hx Apodaca: No Hx Cellulitis: No Hx Eczema: No Hx Melanoma: No Hx Psoriasis: No Hx Squamous Cell: No - MUSCULOSKELETAL/RHEUMATOLOGICAL Hx Arthritis: Yes Hx Fractures: Yes Hx Osteoporosis: Yes Hx Rheumatoid Arthritis: No - GASTROINTESTINAL Hx Crohn's Disease: No Hx Diverticulitis: No Hx Gall Bladder Disease: Yes (gallbladder removed) Hx Gastritis: No Hx Pancreatitis: No - GENITOURINARY/GYNECOLOGICAL Hx Sexually Transmitted Disorders: No - PSYCHIATRIC Hx Anxiety: No Hx Bipolar Disorder: No Hx Depression: Yes Hx Paranoia: No Hx Post Traumatic Stress Disorder: No Hx Schizophrenia: No - SURGICAL HISTORY Hx Appendectomy: No Hx Carotid Endarterectomy: No Hx Cholecystectomy: Yes (October 2012) Hx Coronary Artery Bypass Graft: No Hx Coronary Stent: No Hx Tonsillectomy: Yes - ANESTHESIA Hx Anesthesia: Yes Hx Anesthesia Reactions: Yes (nausea) Hx Malignant Hyperthermia: No Meds Allergies/Adverse Reactions: Allergies Allergy/AdvReac Type Severity Reaction Status Date / Time No Known Allergies Allergy Verified 01/10/18 07:25 - Medications Medications: Current Medications Acetaminophen (Tylenol 325mg Tab) 650 mg PO Q4 PRN PRN Reason: Pain, moderate (4-7) Acetaminophen (Tylenol 325mg Tab) 975 mg PO Q6 PRN PRN Reason: Pain, severe (8-10) Escitalopram Oxalate (Lexapro) 10 mg PO DAILY [facility] Last Admin: 10/07/18 08:54 Dose: 10 mg Famotidine (Pepcid) 20 mg PO BID [facility] Last Admin: 10/07/18 08:54 Dose: 20 mg Home Med (Dronabinol [Marinol]) 5 mg PO BID [facility] Home Med (Febuxostat [Uloric]) 80 mg PO DAILY [facility] Last Admin: 10/06/18 19:45 Dose: Not Given Home Med (Solifenacin Succinate [Vesicare]) 5 mg PO DAILY [facility] Sodium Chloride (Sodium Chloride 0.9%) 500 mls @ 70 mls/hr IV .Q7H9M [facility] Last Admin: 10/06/18 06:54 Dose: 70 mls/hr Levothyroxine Sodium (Synthroid) 50 mcg PO DAILY@0630 [facility] Last Admin: 10/07/18 06:32 Dose: 50 mcg Lidocaine (Lidoderm) 1 ea TD DAILY [facility] Last Admin: 10/07/18 08:56 Dose: 1 ea Sevelamer HCl (Renagel) 800 mg PO TID [facility] Last Admin: 10/07/18 08:54 Dose: 800 mg Results - Vital Signs Recent Vital Signs: Last Vital Signs Temp 98.2 F 10/07/18 08:00 Pulse 73 10/07/18 08:00 Resp 18 10/07/18 08:00 BP 168/81 H 10/07/18 08:00 Pulse Ox 98 10/07/18 08:00 - Labs Result Diagrams: 10/07/18 05:45 10/07/18 05:45 Labs: Laboratory Results - last 24 hr 10/06/18 10/06/18 10/06/18 11:45 11:45 11:45 WBC 3.7 L RBC 3.77 L Hgb 10.6 L D Hct 32.0 L MCV 84.7 MCH 28.1 MCHC 33.2 RDW 17.8 H Plt Count 55 L MPV 8.9 Neut % (Auto) 66.8 Lymph % (Auto) 21.2 Isabella % (Auto) 9.9 Eos % (Auto) 1.3 Baso % (Auto) 0.8 Neut # (Auto) 2.5 Lymph # (Auto) 0.8 L Isabella # (Auto) 0.4 Eos # (Auto) 0.0 Baso # (Auto) 0.0 Sodium 136 Potassium 4.4 Chloride 104 Carbon Dioxide 24 Anion Gap 12 BUN 48 H Creatinine 2.5 H Est GFR ( Amer) 22 Est GFR (Non-Af Amer) 18 Random Glucose 122 H Hemoglobin A1c 5.3 Calcium 9.2 TSH 3rd Generation 3.46 10/07/18 10/07/18 05:45 05:45 WBC 3.2 L RBC 3.56 L Hgb 10.2 L Hct 29.7 L MCV 83.5 MCH 28.6 MCHC 34.3 RDW 17.7 H Plt Count 61 L MPV Neut % (Auto) Lymph % (Auto) Isabella % (Auto) Eos % (Auto) Baso % (Auto) Neut # (Auto) Lymph # (Auto) Isabella # (Auto) Eos # (Auto) Baso # (Auto) Sodium 136 Potassium 4.5 Chloride 106 Carbon Dioxide 22 Anion Gap 13 BUN 48 H Creatinine 2.4 H Est GFR ( Amer) 23 Est GFR (Non-Af Amer) 19 Random Glucose 88 Hemoglobin A1c Calcium 9.1 TSH 3rd Generation
--- NOTE | 2018-10-07 10:30 | CP.PCM.DIS ---
<JuddLizeth - Last Filed: 10/07/18 12:00> Provider - Provider Date of Admission: 10/05/18 14:22 Attending physician: Jeffery Atkinson MD Primary care physician: Debbie March MD Consults: 10/05/18 15:32 Hematology Oncology Consult Stat Comment: Consulting Provider: Debbie March Consulting Physician: Debbie March Reason for Consult: Symptomatic anemia secondary to multiple myeloma Nephrology Consult Stat Comment: Consulting Provider: Wing Garnett Consulting Physician: Wing Garnett Reason for Consult: Chronic Kidney disease stage IV 10/06/18 07:54 Palliative Care Consult Routine Comment: Consulting Provider: Linnea Wade Physician Instructions: Reason For Exam: history of Multiple Myeloma 10/06/18 10:37 Pulmonology Consult Routine Comment: Consulting Provider: Kin Bryan Consulting Physician: Kin Bryan Reason for Consult: Right mediastinal mass on chest xray Time Spent in preparation of Discharge (in minutes): 30 Diagnosis - Discharge Diagnosis (1) Symptomatic anemia Status: Acute Comment: - secondary to Multiple Myeloma. - Vital signs stable. - repeat H/H: 7.3/ 22.5 s/p 2 units pRBC transfusion repeat H/H: 10.6/32.0. - Dr. Maty March, Hem/ Onc consult (2) Mass of right lung Status: Acute Comment: -found on Chest xray: Right paramediastinal mass at level of thoracic aortic arch. - CT scan chest- possible Granulomatous disease. - Pulmonary consult appreciated: Dr. Bryan, at this time family wants to think about bronchoscopy (3) CKD (chronic kidney disease), stage IV Status: Acute Comment: - Nephrology consult Dr. De Guzman - monitored during hospital stay (4) Essential (primary) hypertension Status: Acute Comment: Stable during hospitalization. Was given 1 dose og coreg 3.125mg for elevated BP while recieving blood products- no HTN events noted there after (5) Hypothyroid Status: Chronic Comment: - home medication (levothyroxine 50mcg) was continued. - TSH (3.46) (6) Thrombocytopenia Status: Chronic Comment: Improving during hospital stay Hospital Course - Lab Results Lab Results: Micro Results 10/05/18 13:00 Blood Blood Culture - Preliminary NO GROWTH AFTER 24 HOURS Most Recent Lab Values WBC 3.2 K/uL (4.8-10.8) L 10/07/18 05:45 RBC 3.56 Mil/uL (3.80-5.20) L 10/07/18 05:45 Hgb 10.2 g/dL (12.0-16.0) L 10/07/18 05:45 Hct 29.7 % (34.0-47.0) L 10/07/18 05:45 MCV 83.5 fl (81.0-99.0) 10/07/18 05:45 MCH 28.6 pg (27.0-31.0) 10/07/18 05:45 MCHC 34.3 g/dL (33.0-37.0) 10/07/18 05:45 RDW 17.7 % (11.5-14.5) H 10/07/18 05:45 Plt Count 61 K/uL (130-400) L 10/07/18 05:45 MPV 8.9 fl (7.2-11.7) 10/06/18 11:45 Neut % (Auto) 66.8 % (50.0-75.0) 10/06/18 11:45 Lymph % (Auto) 21.2 % (20.0-40.0) 10/06/18 11:45 Jessamine % (Auto) 9.9 % (0.0-10.0) 10/06/18 11:45 Eos % (Auto) 1.3 % (0.0-4.0) 10/06/18 11:45 Baso % (Auto) 0.8 % (0.0-2.0) 10/06/18 11:45 Neut # (Auto) 2.5 K/uL (1.8-7.0) 10/06/18 11:45 Lymph # (Auto) 0.8 K/uL (1.0-4.3) L 10/06/18 11:45 Jessamine # (Auto) 0.4 K/uL (0.0-0.8) 10/06/18 11:45 Eos # (Auto) 0.0 K/uL (0.0-0.7) 10/06/18 11:45 Baso # (Auto) 0.0 K/uL (0.0-0.2) 10/06/18 11:45 Neutrophils % (Manual) 62 % (42-75) 10/05/18 13:00 Lymphocytes % (Manual) 29 % (20-50) 10/05/18 13:00 Monocytes % (Manual) 9 % (0-10) 10/05/18 13:00 Platelet Estimate Decreased (NORMAL) L 10/05/18 13:00 Hypochromasia (manual) Moderate 10/05/18 13:00 Anisocytosis (manual) Moderate 10/05/18 13:00 pO2 21 mm/Hg (30-55) L 10/05/18 12:20 VBG pH 7.38 (7.32-7.43) 10/05/18 12:20 VBG pCO2 43 mmHg (40-60) 10/05/18 12:20 VBG HCO3 23.2 mmol/L 10/05/18 12:20 VBG Total CO2 26.7 mmol/L (22-28) 10/05/18 12:20 VBG O2 Sat (Calc) 36.9 % (40-65) L 10/05/18 12:20 VBG Base Excess 0.0 mmol/L (0.0-2.0) 10/05/18 12:20 VBG Potassium 3.7 mmol/L (3.6-5.2) 10/05/18 12:20 Sodium 137.0 mmol/L (132-148) 10/05/18 12:20 Chloride 109.0 mmol/L (98-107) H 10/05/18 12:20 Glucose 108 mg/dL (65-105) H 10/05/18 12:20 Lactate 1.7 mmol/L (0.7-2.1) 10/05/18 12:20 FiO2 21.0 % 10/05/18 12:20 Sodium 136 mmol/l (132-148) 10/07/18 05:45 Potassium 4.5 MMOL/L (3.6-5.0) 10/07/18 05:45 Chloride 106 mmol/L (98-107) 10/07/18 05:45 Carbon Dioxide 22 mmol/L (22-30) 10/07/18 05:45 Anion Gap 13 (10-20) 10/07/18 05:45 BUN 48 mg/dl (7-17) H 10/07/18 05:45 Creatinine 2.4 mg/dl (0.7-1.2) H 10/07/18 05:45 Est GFR ( Amer) 10/07/18 05:45 Est GFR (Non-Af Amer) 10/07/18 05:45 POC Glucose (mg/dL) 120 mg/dL (65-110) H 10/05/18 12:34 Random Glucose 88 mg/dL (65-105) 10/07/18 05:45 Hemoglobin A1c 5.3 % (4.2-6.5) 10/06/18 11:45 Calcium 9.1 mg/dL (8.4-10.2) 10/07/18 05:45 Total Bilirubin 0.6 mg/dl (0.2-1.3) 10/05/18 13:00 AST 15 U/L (14-36) 10/05/18 13:00 ALT 12 U/L (9-52) 10/05/18 13:00 Alkaline Phosphatase 60 U/L (38-126) 10/05/18 13:00 Total Protein 7.5 G/DL (6.3-8.2) 10/05/18 13:00 Albumin 3.9 g/dL (3.5-5.0) 10/05/18 13:00 Globulin 3.5 gm/dL (2.2-3.9) 10/05/18 13:00 Albumin/Globulin Ratio 1.1 (1.0-2.1) 10/05/18 13:00 TSH 3rd Generation 3.46 mIU/ML (0.46-4.68) 10/06/18 11:45 Venous Blood Potassium 3.7 mmol/L (3.6-5.2) 10/05/18 12:20 Urine Color Yellow (YELLOW) 10/05/18 20:33 Urine Clarity Clear (Clear) 10/05/18 20:33 Urine pH 6.0 (5.0-8.0) 10/05/18 20:33 Ur Specific Aurora 1.010 (1.003-1.030) 10/05/18 20:33 Urine Protein 100 mg/dL (NEGATIVE) 10/05/18 20:33 Urine Glucose (UA) Neg mg/dL (NEGATIVE) 10/05/18 20:33 Urine Ketones Negative mg/dL (NEGATIVE) 10/05/18 20:33 Urine Blood Small (NEGATIVE) 10/05/18 20:33 Urine Nitrate Negative (NEGATIVE) 10/05/18 20:33 Urine Bilirubin Negative (NEGATIVE) 10/05/18 20:33 Urine Urobilinogen 0.2-1.0 mg/dL (0.2-1.0) 10/05/18 20:33 Ur Leukocyte Esterase Neg Yoshi/uL (Negative) 10/05/18 20:33 Urine RBC (Auto) 4 /hpf (0-3) H 10/05/18 20:33 Urine Microscopic WBC < 1 /hpf (0-5) 10/05/18 20:33 Ur Squamous Epith Cells < 1 /hpf (0-5) 10/05/18 20:33 Urine Bacteria Rare (<OCC) 10/05/18 20:33 Blood Type AB POSITIVE 10/05/18 13:00 Antibody Screen Positive 10/05/18 13:00 Antibody Identification Anti E 10/05/18 13:00 Crossmatch See Detail 10/05/18 13:00 BBK History Checked Patient has bt 10/05/18 13:00 - Hospital Course Hospital Course: 83 yo female with pmh of multiple myeloma with secondary anemia, history of essential hypertension, CKD stage IV not on dialysis, hypothyroidism admitted for symptomatic anemia secondary to multiple myeloma. During hospital stay, patient recieved 2 units of pRBCs given H/H on admission was 7.3/22.5. Repeat H/H 10.6/32.0; patient tolerated blood products with one episode of hypertension of which she was given one dose of Coreg 3.125mg. Dr. Fina March was consulted for Hem/ Onc as well as Dr. Bryan for pulmonology given there was a right paramediastinal mass. CT lung performed which resulted in complex right upper lobe mass likely representing prior exposure to granulom atous disease. Patient denied any exposure to TB in the past. At this time, family is not interested in bronchoscopy but will think about it. Discharge Exam - Head Exam Head Exam: ATRAUMATIC, NORMAL INSPECTION, NORMOCEPHALIC - Eye Exam Eye Exam: Normal appearance - ENT Exam ENT Exam: Mucous Membranes Moist - Respiratory Exam Respiratory Exam: Clear to PA & Lateral, NORMAL BREATHING PATTERN, UNREMARKABLE. absent: Accessory Muscle Use, Chest Wall Tenderness, Decreased Breath Sounds, Prolonged Expiratory Phase, Rales, Rhonchi, Wheezes, Respiratory Distress, Stridor - Cardiovascular Exam Cardiovascular Exam: +S1, +S2 - GI/Abdominal Exam GI & Abdominal Exam: Normal Bowel Sounds, Soft, Unremarkable. absent: Diminished Bowel Sounds, Distended, Firm, Guarding, Hernia, Rebound, Rigid, Tenderness - Neurological Exam Neurological exam: Alert, Oriented x3 - Psychiatric Exam Psychiatric exam: Normal Affect, Normal Mood - Skin Skin Exam: Dry, Normal Color Discharge Plan - Follow Up Plan Condition: FAIR Disposition: HOME/ ROUTINE Patient education suggested?: Yes Instructions: Anemia of Chronic Disease (DC), Chronic Kidney Disease (DC) Additional Instructions: follow up with primary MD in 1 week Referrals: Debbie March MD [Primary Care Provider] - <Jeffery Atkinson - Last Filed: 10/07/18 12:40> Provider - Provider Date of Admission: 10/05/18 14:22 Attending physician: Jeffery Atkinson MD Primary care physician: Debbie March MD Consults: 10/05/18 15:32 Hematology Oncology Consult Stat Comment: Consulting Provider: Debbie March Consulting Physician: Debbie March Reason for Consult: Symptomatic anemia secondary to multiple myeloma Nephrology Consult Stat Comment: Consulting Provider: Wing Garnett Consulting Physician: Wing Garnett Reason for Consult: Chronic Kidney disease stage IV 10/06/18 07:54 Palliative Care Consult Routine Comment: Consulting Provider: Linnea Wade Physician Instructions: Reason For Exam: history of Multiple Myeloma 10/06/18 10:37 Pulmonology Consult Routine Comment: Consulting Provider: Kin Bryan Consulting Physician: Kin Bryan Reason for Consult: Right mediastinal mass on chest xray Hospital Course - Lab Results Lab Results: Micro Results 10/05/18 13:00 Blood Blood Culture - Preliminary NO GROWTH AFTER 24 HOURS Most Recent Lab Values WBC 3.2 K/uL (4.8-10.8) L 10/07/18 05:45 RBC 3.56 Mil/uL (3.80-5.20) L 10/07/18 05:45 Hgb 10.2 g/dL (12.0-16.0) L 10/07/18 05:45 Hct 29.7 % (34.0-47.0) L 10/07/18 05:45 MCV 83.5 fl (81.0-99.0) 10/07/18 05:45 MCH 28.6 pg (27.0-31.0) 10/07/18 05:45 MCHC 34.3 g/dL (33.0-37.0) 10/07/18 05:45 RDW 17.7 % (11.5-14.5) H 10/07/18 05:45 Plt Count 61 K/uL (130-400) L 10/07/18 05:45 MPV 8.9 fl (7.2-11.7) 10/06/18 11:45 Neut % (Auto) 66.8 % (50.0-75.0) 10/06/18 11:45 Lymph % (Auto) 21.2 % (20.0-40.0) 10/06/18 11:45 Jessamine % (Auto) 9.9 % (0.0-10.0) 10/06/18 11:45 Eos % (Auto) 1.3 % (0.0-4.0) 10/06/18 11:45 Baso % (Auto) 0.8 % (0.0-2.0) 10/06/18 11:45 Neut # (Auto) 2.5 K/uL (1.8-7.0) 10/06/18 11:45 Lymph # (Auto) 0.8 K/uL (1.0-4.3) L 10/06/18 11:45 Jessamine # (Auto) 0.4 K/uL (0.0-0.8) 10/06/18 11:45 Eos # (Auto) 0.0 K/uL (0.0-0.7) 10/06/18 11:45 Baso # (Auto) 0.0 K/uL (0.0-0.2) 10/06/18 11:45 Neutrophils % (Manual) 62 % (42-75) 10/05/18 13:00 Lymphocytes % (Manual) 29 % (20-50) 10/05/18 13:00 Monocytes % (Manual) 9 % (0-10) 10/05/18 13:00 Platelet Estimate Decreased (NORMAL) L 10/05/18 13:00 Hypochromasia (manual) Moderate 10/05/18 13:00 Anisocytosis (manual) Moderate 10/05/18 13:00 pO2 21 mm/Hg (30-55) L 10/05/18 12:20 VBG pH 7.38 (7.32-7.43) 10/05/18 12:20 VBG pCO2 43 mmHg (40-60) 10/05/18 12:20 VBG HCO3 23.2 mmol/L 10/05/18 12:20 VBG Total CO2 26.7 mmol/L (22-28) 10/05/18 12:20 VBG O2 Sat (Calc) 36.9 % (40-65) L 10/05/18 12:20 VBG Base Excess 0.0 mmol/L (0.0-2.0) 10/05/18 12:20 VBG Potassium 3.7 mmol/L (3.6-5.2) 10/05/18 12:20 Sodium 137.0 mmol/L (132-148) 10/05/18 12:20 Chloride 109.0 mmol/L (98-107) H 10/05/18 12:20 Glucose 108 mg/dL (65-105) H 10/05/18 12:20 Lactate 1.7 mmol/L (0.7-2.1) 10/05/18 12:20 FiO2 21.0 % 10/05/18 12:20 Sodium 136 mmol/l (132-148) 10/07/18 05:45 Potassium 4.5 MMOL/L (3.6-5.0) 10/07/18 05:45 Chloride 106 mmol/L (98-107) 10/07/18 05:45 Carbon Dioxide 22 mmol/L (22-30) 10/07/18 05:45 Anion Gap 13 (10-20) 10/07/18 05:45 BUN 48 mg/dl (7-17) H 10/07/18 05:45 Creatinine 2.4 mg/dl (0.7-1.2) H 10/07/18 05:45 Est GFR ( Amer) 10/07/18 05:45 Est GFR (Non-Af Amer) 10/07/18 05:45 POC Glucose (mg/dL) 120 mg/dL (65-110) H 10/05/18 12:34 Random Glucose 88 mg/dL (65-105) 10/07/18 05:45 Hemoglobin A1c 5.3 % (4.2-6.5) 10/06/18 11:45 Calcium 9.1 mg/dL (8.4-10.2) 10/07/18 05:45 Total Bilirubin 0.6 mg/dl (0.2-1.3) 10/05/18 13:00 AST 15 U/L (14-36) 10/05/18 13:00 ALT 12 U/L (9-52) 10/05/18 13:00 Alkaline Phosphatase 60 U/L (38-126) 10/05/18 13:00 Total Protein 7.5 G/DL (6.3-8.2) 10/05/18 13:00 Albumin 3.9 g/dL (3.5-5.0) 10/05/18 13:00 Globulin 3.5 gm/dL (2.2-3.9) 10/05/18 13:00 Albumin/Globulin Ratio 1.1 (1.0-2.1) 10/05/18 13:00 TSH 3rd Generation 3.46 mIU/ML (0.46-4.68) 10/06/18 11:45 Venous Blood Potassium 3.7 mmol/L (3.6-5.2) 10/05/18 12:20 Urine Color Yellow (YELLOW) 10/05/18 20:33 Urine Clarity Clear (Clear) 10/05/18 20:33 Urine pH 6.0 (5.0-8.0) 10/05/18 20:33 Ur Specific Aurora 1.010 (1.003-1.030) 10/05/18 20:33 Urine Protein 100 mg/dL (NEGATIVE) 10/05/18 20:33 Urine Glucose (UA) Neg mg/dL (NEGATIVE) 10/05/18 20:33 Urine Ketones Negative mg/dL (NEGATIVE) 10/05/18 20:33 Urine Blood Small (NEGATIVE) 10/05/18 20:33 Urine Nitrate Negative (NEGATIVE) 10/05/18 20:33 Urine Bilirubin Negative (NEGATIVE) 10/05/18 20:33 Urine Urobilinogen 0.2-1.0 mg/dL (0.2-1.0) 10/05/18 20:33 Ur Leukocyte Esterase Neg Yoshi/uL (Negative) 10/05/18 20:33 Urine RBC (Auto) 4 /hpf (0-3) H 10/05/18 20:33 Urine Microscopic WBC < 1 /hpf (0-5) 10/05/18 20:33 Ur Squamous Epith Cells < 1 /hpf (0-5) 10/05/18 20:33 Urine Bacteria Rare (<OCC) 10/05/18 20:33 Blood Type AB POSITIVE 10/05/18 13:00 Antibody Screen Positive 10/05/18 13:00 Antibody Identification Anti E 10/05/18 13:00 Crossmatch See Detail 10/05/18 13:00 BBK History Checked Patient has bt 10/05/18 13:00 Attending/Attestation - Attestation I have personally seen and examined this patient.: Yes I have fully participated in the care of the patient.: Yes I have reviewed all pertinent clinical information, including history, physical exam and plan: Yes Notes (Text): 10/07/18 12:39 Patient seen and examined with resident. Case discussed and agreed with assessment. Patient discharged in stable condition
--- NOTE | 2018-10-07 10:56 | PCM.PPROG ---
History of Present Illness - History of Present Illness History of Present Illness: Patient is a 83 year old female who came to the ED complaining of lower back pain that got worse the last few days prior. She also complained of left knee swelling. PMH: Multiple myeloma, anemia, depression, DM II, Gall Bladder disease, HTN, Hypothyroidism, CKD IV Soc hx : live alone, denies smoking, drinking, or drug use Fam hx: Unknown CXR 10/05: Right Paramediastinal mass at the level of the thoracic aortic arch Chest CT 10/05: chronic right upper lobe mass Knee Xray 10/05: No acute fx, moderate suprapatellar effusion Review of Systems - Musculoskeletal Musculoskeletal: Back Pain Physical Exam - Constitutional Appears: No Acute Distress - Head Exam Head Exam: ATRAUMATIC, NORMAL INSPECTION, NORMOCEPHALIC - Eye Exam Eye Exam: Normal appearance, PERRL - ENT Exam ENT Exam: Mucous Membranes Moist - Neck Exam Neck exam: Positive for: Normal Inspection - Respiratory Exam Respiratory Exam: Decreased Breath Sounds - Cardiovascular Exam Cardiovascular Exam: REGULAR RHYTHM - GI/Abdominal Exam GI & Abdominal Exam: Normal Bowel Sounds, Soft - Extremities Exam Extremities exam: Positive for: pedal pulses present - Neurological Exam Neurological exam: Alert, Oriented x3 - Psychiatric Exam Psychiatric exam: Normal Affect, Normal Mood - Skin Skin Exam: Intact, Normal Color, Warm Palliative Care Assessment - Modified MRC Dyspnea Scale Modified MRC Dyspnea Scale: Short of Breath when hurrying or walking up a slight hill Grade: 2 - Pain Scale Pain Score: 0 Pain Scale Used: Numeric - Pain Location Upper or Lower: Lower Pain Location Body Site: Back - Diony Scale Sensory Perception: No Impairment Moisture: Rarely Moist Activity: Walks Occasionally Mobility: Slightly Impaired Nutrition: Probably Inadequate Friction & Shear: No Apparent Problem Total Score - Skin Risk Assessment: 19 - Psychosocial Distress Patient screened for psychosocial distress: Yes Palliative Care - Goals Goal(s) of care: Goals of care discussion held with patient. She states that she would like to improve her mobility and ability to do all her ADLs because she lives alone at home. She says that daughter is able to help when she can. She says she is usually able to get around very well using her walker while she is at home but the past few days prior to admission have been difficult because of pain. Patient daughter at bedside and states that at this point they do not want further work up of Right upper lobe mass found on CT scan. Patient will be discharged home today. Code Status: Full Code Treatment Goal(s): Alleviate symptoms, Improve ADLs, Improve quality of life Assessment & Plan - Assessment and Plan (Free Text) Assessment: Impression Pain Decreased Mobility Loss of appetite Suggestion Assess for pain Q4h, has tylenol prn Continue Physical Therapy Encourage PO feeds as tolerated Thank Your for this consult
--- NOTE | 2018-10-07 10:56 | CP.PCM.CON ---
History of Present Illness - History of Present Illness History of Present Illness: Pulmonary Consult note for Dr. Bryan Pulmonary consult for Right Para-Mediastinal mass This is 83 y/o F with PMH of multiple myeloma with secondary anemia, dementia, essential hypertension, CKD stage IV not on dialysis, and hypothyroidism seen by pulmonary team today for evaluation and treatment of Right Para-Mediastinal Mass. Patient currently denies any SOB, cough, fever, hematemesis, nose bleed or any chest pain. Patient reports she was treated for pneumonia as outpatient in past but no recent pulmonary complains. In ER, patient was found to have Right Para-Mediastinal mass in CXR, CT : Complex RUL mass possible Granulomatous disease. Past records reviewed, patient had this finding present 3 years ago, increased in size since then. PMD: Dr. Fina March [employer] [place]: Dr. Garnett PMH: multiple myeloma with secondary anemia, dementia, essential hypertension, CKD stage IV not on dialysis, and hypothyroidism Medications: See med rec Surgical history: Repair of Hip fracture in 2014; Cholecystectomy 2012 and Hysterectomy 40 years ago. Family history: non-contributory Social: Denies smoking history, illicit drug use or alcohol use. Review of Systems - Constitutional Constitutional: Weight Loss. absent: Fever, Lethargy, Night Sweats - EENT Eyes: absent: Blurred Vision, Change in Vision Nose/Mouth/Throat: absent: Nose Pain, Sinus Pressure, Bleeding Gums, Dysphagia, Halitosis, Odynophagia, Sore Throat, Neck Pain, Neck Mass - Breasts Breasts: absent: Skin Changes - Cardiovascular Cardiovascular: absent: Chest Pain - Respiratory Respiratory: absent: Cough, Dyspnea, Hemoptysis, Dyspnea on Exertion, Wheezing, Pain on Inspiration, Chest Congestion - Gastrointestinal Gastrointestinal: absent: Abdominal Pain - Genitourinary Genitourinary: absent: Dysuria - Neurological Neurological: absent: Sensory Deficit, Syncope, Tingling, Tremor, Vertigo - Psychiatric Psychiatric: absent: Anxiety - Hematologic/Lymphatic Hematologic: absent: Easy Bleeding Past Patient History - Infectious Disease Hx of Infectious Diseases: None - Tetanus Immunizations Tetanus Immunization: Unknown - Past Medical History & Family History Past Medical History?: Yes - Past Social History Smoking Status: Never Smoked - CARDIAC Hx Atrial Fibrillation: No Hx Cardia Arrhythmia: No Hx Congestive Heart Failure: No Hx Hypercholesterolemia: No Hx Hypertension: Yes Hx Mitral Valve Prolapse: No Hx Pacemaker: No Hx Peripheral Edema: No - PULMONARY Hx Asthma: No Hx Bronchitis: No Hx Chronic Obstructive Pulmonary Disease (COPD): No Hx Emphysema: No Hx Pneumonia: Yes Hx Pulmonary Embolism: No Hx Sleep Apnea: No - NEUROLOGICAL Hx Alzheimer's Disease: No Hx Dementia: No Hx Migraine: No Hx Multiple Sclerosis: No Hx Parkinson's Disease: No Hx Seizures: No Hx Transient Ischemic Attacks (TIA): No - HEENT Hx HEENT Problems: Yes Hx Blind: No Hx Cataracts: Yes (b/l cataract surgery 2009?) Hx Deafness: No Hx Difficulty Chewing: No Hx Epistaxis: No Hx Glaucoma: No Hx Macular Degeneration: No - RENAL Hx Chronic Kidney Disease: Yes Hx Kidney Stones: Yes - ENDOCRINE/METABOLIC Hx Hyperthyroidism: No Hx Hypothyroidism: Yes - HEMATOLOGICAL/ONCOLOGICAL Hx Anemia: Yes Hx Human Immunodeficiency Virus (HIV): No Hx Sickle Cell Disease: No - INTEGUMENTARY Hx Basil Cell: No Hx [place]: No Hx Cellulitis: No Hx Eczema: No Hx Melanoma: No Hx Psoriasis: No Hx Squamous Cell: No - MUSCULOSKELETAL/RHEUMATOLOGICAL Hx Arthritis: Yes Hx Fractures: Yes Hx Osteoporosis: Yes Hx Rheumatoid Arthritis: No - GASTROINTESTINAL Hx Crohn's Disease: No Hx Diverticulitis: No Hx Gall Bladder Disease: Yes (gallbladder removed) Hx Gastritis: No Hx Pancreatitis: No - GENITOURINARY/GYNECOLOGICAL Hx Sexually Transmitted Disorders: No - PSYCHIATRIC Hx Anxiety: No Hx Bipolar Disorder: No Hx Depression: Yes Hx Paranoia: No Hx Post Traumatic Stress Disorder: No Hx Schizophrenia: No - SURGICAL HISTORY Hx Appendectomy: No Hx Carotid Endarterectomy: No Hx Cholecystectomy: Yes (October 2012) Hx Coronary Artery Bypass Graft: No Hx Coronary Stent: No Hx Tonsillectomy: Yes - ANESTHESIA Hx Anesthesia: Yes Hx Anesthesia Reactions: Yes (nausea) Hx Malignant Hyperthermia: No Meds Allergies/Adverse Reactions: Allergies Allergy/AdvReac Type Severity Reaction Status Date / Time No Known Allergies Allergy Verified 01/10/18 07:25 - Medications Medications: Current Medications Acetaminophen (Tylenol 325mg Tab) 650 mg PO Q4 PRN PRN Reason: Pain, moderate (4-7) Acetaminophen (Tylenol 325mg Tab) 975 mg PO Q6 PRN PRN Reason: Pain, severe (8-10) Escitalopram Oxalate (Lexapro) 10 mg PO DAILY JIGNA Last Admin: 10/07/18 08:54 Dose: 10 mg Famotidine (Pepcid) 20 mg PO BID [facility] Last Admin: 10/07/18 08:54 Dose: 20 mg Home Med (Dronabinol [Marinol]) 5 mg PO BID [facility] Home Med (Solifenacin Succinate [Vesicare]) 5 mg PO DAILY [facility] Home Med (Febuxostat [Uloric]) 80 mg PO DAILY [facility] Sodium Chloride (Sodium Chloride 0.9%) 500 mls @ 70 mls/hr IV .Q7H9M [facility] Last Admin: 10/06/18 06:54 Dose: 70 mls/hr Levothyroxine Sodium (Synthroid) 50 mcg PO DAILY@0630 [facility] Last Admin: 10/07/18 06:32 Dose: 50 mcg Lidocaine (Lidoderm) 1 ea TD DAILY [facility] Last Admin: 10/07/18 08:56 Dose: 1 ea Sevelamer HCl (Renagel) 800 mg PO TID [facility] Last Admin: 10/07/18 08:54 Dose: 800 mg Physical Exam - Constitutional Appears: No Acute Distress - Head Exam Head Exam: NORMAL INSPECTION - Eye Exam Eye Exam: Normal appearance - ENT Exam ENT Exam: Mucous Membranes Moist - Neck Exam Neck exam: Positive for: Normal Inspection - Respiratory Exam Additional comments: Memory is intact, gait is not tested, no focal motor weakness, speech is fluent No dependant edema, no cyanosis. No palpable lymphadenopathy. Pharynx pink and moist w/o exudate. Neck is supple and trachea midline. No dullness on chest percussion. Nasal passages are patent bilaterally, No bleeding or exudate. EACs are patent and TMs are intact bilaterally. No dullness on chest percussion. Equal expansion. No audible wheezing or bronchial breathing CTAB - Cardiovascular Exam Cardiovascular Exam: REGULAR RHYTHM, +S1, +S2 - GI/Abdominal Exam GI & Abdominal Exam: Normal Bowel Sounds, Soft. absent: Tenderness - Extremities Exam Extremities exam: Positive for: normal inspection - Back Exam Back exam: NORMAL INSPECTION - Neurological Exam Neurological exam: Alert - Psychiatric Exam Psychiatric exam: Normal Affect Results - Vital Signs Recent Vital Signs: Last Vital Signs Temp 98.2 F 10/07/18 08:00 Pulse 73 10/07/18 08:00 Resp 18 10/07/18 08:00 BP 168/81 H 10/07/18 08:00 Pulse Ox 98 10/07/18 08:00 - Labs Result Diagrams: 10/07/18 05:45 10/07/18 05:45 Labs: Laboratory Results - last 24 hr 10/06/18 10/06/18 10/06/18 11:45 11:45 11:45 WBC 3.7 L RBC 3.77 L Hgb 10.6 L D Hct 32.0 L MCV 84.7 MCH 28.1 MCHC 33.2 RDW 17.8 H Plt Count 55 L MPV 8.9 Neut % (Auto) 66.8 Lymph % (Auto) 21.2 [place] % (Auto) 9.9 Eos % (Auto) 1.3 Baso % (Auto) 0.8 Neut # (Auto) 2.5 Lymph # (Auto) 0.8 L [place] # (Auto) 0.4 Eos # (Auto) 0.0 Baso # (Auto) 0.0 Sodium 136 Potassium 4.4 Chloride 104 Carbon Dioxide 24 Anion Gap 12 BUN 48 H Creatinine 2.5 H Est GFR ( Amer) 22 Est GFR (Non-Af Amer) 18 Random Glucose 122 H Hemoglobin A1c 5.3 Calcium 9.2 TSH 3rd Generation 3.46 10/07/18 10/07/18 05:45 05:45 WBC 3.2 L RBC 3.56 L Hgb 10.2 L Hct 29.7 L MCV 83.5 MCH 28.6 MCHC 34.3 RDW 17.7 H Plt Count 61 L MPV Neut % (Auto) Lymph % (Auto) [place] % (Auto) Eos % (Auto) Baso % (Auto) Neut # (Auto) Lymph # (Auto) [place] # (Auto) Eos # (Auto) Baso # (Auto) Sodium 136 Potassium 4.5 Chloride 106 Carbon Dioxide 22 Anion Gap 13 BUN 48 H Creatinine 2.4 H Est GFR ( Amer) 23 Est GFR (Non-Af Amer) 19 Random Glucose 88 Hemoglobin A1c Calcium 9.1 TSH 3rd Generation Assessment & Plan (1) Pulmonary granulomatosis Assessment and Plan: Chronic, RUL para-mediastinal complex mass, Measures 4.2x3.6x5 cm, present since 2016: increased in size Likely infectious, low suspicion for malignancy CXR: Right Para-Mediastinal mass CT: Complex RUL mass possible Granulomatous disease Plan is to perform bronchoscopy with brushing/BAL, Bronch-Biopsy may not be possible due to location and risk of bleeding Family and Patient was educated on diagnosis Family and Patient are not sure about the Bronchosopy right now, will f/u with Pulmonary/Dr. Bryan as outpatient for possible Bronch Care time 40 mins Status: Chronic (2) Mass of upper lobe of right lung Assessment and Plan: Complex mass, Measures 4.2x3.6x5 cm Status: Acute
--- NOTE | 2018-10-07 15:56 | CP.PCM.PN ---
Subjective - Date & Time of Evaluation Date of Evaluation: 10/07/18 Time of Evaluation: 15:55 - Subjective Subjective: RENAL Note S: Pt seen in observation status. Pt hx of CKD 4/5 following w/ Dr. Garnett admitted for anemia. She state she came to hospital for incontinence but was poor historian could not tell me much else. Hx of CKD from DM and HTN. Hx of MM following w/ Dr. March. ros: a full detailed ros is negative except as in my hpi pmH: ckd 4/5 htn dm mm famhx:+htn sochx: no active smoke etoh or ivdu pe: VSS gen:nad sclera: anicteric op: clear neck: Supple cv: +S1+s2 no rub lungs: CTA b/l abd: SOft nt nd no organomegaly ext: No edema neuro: alert follows commands no focal deficit psych: nml affect skin no rash imp: CKD5, HTN kidney disease, diabetic kidney disease, anemia, Myeloma, Acidosis plan: Renal function stable transfusiosn per oncology DM stable acidosis on na hco3 as outpt but looks stable here will monitor BP control. daughter was advised to monitor at home and see Dr Garnett in 1-2 weeks Objective - Vital Signs/Intake and Output Vital Signs (last 24 hours): Temp Pulse Resp BP Pulse Ox 98.2 F 73 18 168/81 H 98 10/07/18 08:00 10/07/18 08:00 10/07/18 08:00 10/07/18 08:00 10/07/18 08:00 - Labs Labs: 10/07/18 05:45 10/07/18 05:45
== END 2018-10-07 11:30 | disposition home or self-care (01) ==
LOC: H.ER 11:50 → H.ERHOLD 14:22 → H.TEL 15:53
DX: C90.00 Multiple myeloma not having achieved remission (principal); D63.0 Anemia in neoplastic disease; D69.6 Thrombocytopenia, unspecified; I12.0 Hypertensive chronic kidney disease with stage 5 chronic kidney disease or end stage renal disease; N18.5 Chronic kidney disease, stage 5; E87.2 Acidosis; E11.22 Type 2 diabetes mellitus with diabetic chronic kidney disease; R91.8 Other nonspecific abnormal finding of lung field; L92.8 Other granulomatous disorders of the skin and subcutaneous tissue; F03.90 Unspecified dementia, unspecified severity, without behavioral disturbance, psychotic disturbance, mood disturbance, and anxiety; R32 Unspecified urinary incontinence; E03.9 Hypothyroidism, unspecified; M81.0 Age-related osteoporosis without current pathological fracture; Z92.21 Personal history of antineoplastic chemotherapy; Z87.440 Personal history of urinary (tract) infections; Z87.01 Personal history of pneumonia (recurrent); Z87.442 Personal history of urinary calculi; Z87.81 Personal history of (healed) traumatic fracture
CPT/HCPCS: 36415; 36430; 71045; 71250; 73562; 80048; 80053; 81003; 82803; 82948; 83036; 84443; 85025; 85027; 86850; 86870; 86900; 86920; 86921; 86922; 87040; 87086; 93005; 97162; 97166; 97530; 99282; G0378; G8978; G8979; G8987; G8988; J7040; P9051